=== PATIENT | male | born 1945 | race Caucasian/White ===

== ENCOUNTER → 2016-05-31 | Outpatient (CLI) | payer MEDICARE, OTHER ==
[2016-05-31 10:48] LABS: ABSOLUTE EOSINOPHILS # (AUTO) 0.2 10^3/uL (0.0-0.6); ABSOLUTE LYMPHOCYTES (AUTO) 1.1 10^3/uL (0.5-4.7); ABSOLUTE MONOCYTES (AUTO) 0.2 10^3/uL (0.1-1.4); ABSOLUTE NEUT (AUTO) 2.3 10^3/uL (1.7-8.2); BASOPHILS % (AUTO) 0.6 % (0-2); EOSINOPHILS % (AUTO) 5.8 % (0-6); HEMATOCRIT 41.7 % (37.9-51.0); HGB HCT DIFFERENCE 3.3; LYMPHOCYTES % (AUTO) 28.1 % (13-45); MEAN CORPUSCULAR HEMOGLOBIN 33.8 pg (27.0-33.4); MEAN CORPUSCULAR HGB CONC 35.9 g/dL (32.0-36.0); MEAN CORPUSCULAR VOLUME 94 fl (80-97); MONOCYTES % (AUTO) 5.2 % (3-13); RED BLOOD COUNT 4.44 10^6/uL (4.35-5.55); RED CELL DISTRIBUTION WIDTH 13.8 % (11.5-14.0); SEGMENTED NEUTROPHILS % (AUTO) 60.3 % (42-78); WHITE BLOOD COUNT 3.8 10^3/uL (4.0-10.5)
[2016-05-31 11:05] LABS: ALANINE AMINOTRANSFERASE 47 U/L (21-72); ALBUMIN 4.4 g/dL (3.5-5.0); ALKALINE PHOSPHATASE 110 U/L (38-126); ANION GAP 12 (5-19); ASPARTATE AMINO TRANSFERASE 24 U/L (17-59); BILIRUBIN,DIRECT 0.1 mg/dL (0.0-0.4); BILIRUBIN,TOTAL 0.7 mg/dL (0.2-1.3); BLOOD UREA NITROGEN 23 mg/dL (7-20); CALCIUM 9.3 mg/dL (8.4-10.2); CARBON DIOXIDE 26 mmol/L (22-30); CHLORIDE 106 mmol/L (98-107); CHOLESTEROL 163.95 mg/dL (0-200); CREATININE RESULT 0.81 mg/dL (0.52-1.25); Direct HDL 34 mg/dL (>40); GLUCOSE 113 mg/dL (75-110); SODIUM 144.3 mmol/L (137-145); TOTAL PROTEIN 6.2 g/dL (6.3-8.2); TRIGLYCERIDES 111 mg/dL (<150)
[2016-05-31 11:15] LABS: DIRECT LDL 103 mg/dL (<100)
== END ==
LOC: OD 09:12
PROVIDERS: ATTEND Internal Medicine
DX: I10 Essential (primary) hypertension (principal); E78.5 Hyperlipidemia, unspecified; E03.9 Hypothyroidism, unspecified; R35.1 Nocturia; C91.00 Acute lymphoblastic leukemia not having achieved remission
CPT/HCPCS: 36415; 80053; 80061; 84153; 84443; 85025

== ENCOUNTER → 2017-05-15 | Outpatient (CLI) | payer MEDICARE, OTHER ==
[2017-05-15 11:13] LABS: HEMATOCRIT 41.8 % (37.9-51.0); HEMOGLOBIN 15.1 g/dL (13.5-17.0); MEAN CORPUSCULAR HEMOGLOBIN 33.9 pg (27.0-33.4); MEAN CORPUSCULAR HGB CONC 36.1 g/dL (32.0-36.0); MEAN CORPUSCULAR VOLUME 94 fl (80-97); RED BLOOD COUNT 4.45 10^6/uL (4.35-5.55); RED CELL DISTRIBUTION WIDTH 13.9 % (11.5-14.0); WHITE BLOOD COUNT 2.5 10^3/uL (4.0-10.5)
[2017-05-15 11:22] LABS: ALANINE AMINOTRANSFERASE 34 U/L (21-72); ALBUMIN 4.5 g/dL (3.5-5.0); ALKALINE PHOSPHATASE 95 U/L (38-126); ANION GAP 12 (5-19); ASPARTATE AMINO TRANSFERASE 23 U/L (17-59); BILIRUBIN,DIRECT 0.1 mg/dL (0.0-0.4); BLOOD UREA NITROGEN 17 mg/dL (7-20); CALCIUM 9.4 mg/dL (8.4-10.2); CARBON DIOXIDE 26 mmol/L (22-30); CHLORIDE 103 mmol/L (98-107); CHOLESTEROL 149.02 mg/dL (0-200); GLUCOSE 124 mg/dL (75-110); POTASSIUM 4.3 mmol/L (3.6-5.0); SODIUM 141.1 mmol/L (137-145); TRIGLYCERIDES 95 mg/dL (<150)
[2017-05-15 11:36] LABS: DIRECT LDL 104 mg/dL (<100); PLATELET COUNT 81 10^3/uL (150-450)
[2017-05-15 11:37] LABS: ABSOLUTE LYMPHOCYTES# (MANUAL) 0.9 10^3/uL (0.5-4.7); ABSOLUTE MONOCYTES # (MANUAL) 0.4 10^3/uL (0.1-1.4); ABSOLUTE NEUTROPHILS# (MANUAL) 1.2 10^3/uL (1.7-8.2); BASOPHILS % (MANUAL) 0 % (0-2); EOSINOPHILS % (MANUAL) 3 % (0-6); LYMPHOCYTES % (MANUAL) 35 % (13-45); MONOCYTES % (MANUAL) 14 % (3-13); PLATELET COMMENT DECREASED; RBC MORPHOLOGY COMMENT NORMO-CYTIC/CHROMIC; SEGMENTED NEUTROPHILS % (MAN) 48 % (42-78); TOTAL CELLS COUNTED 100; TOXIC GRANULATION 1+; TOXIC VACUOLATION PRESENT
== END ==
LOC: OD 09:48
PROVIDERS: ATTEND Internal Medicine
DX: E53.8 Deficiency of other specified B group vitamins (principal); R73.9 Hyperglycemia, unspecified; D64.9 Anemia, unspecified; G62.9 Polyneuropathy, unspecified; I10 Essential (primary) hypertension; E78.5 Hyperlipidemia, unspecified; E03.9 Hypothyroidism, unspecified; C91.10 Chronic lymphocytic leukemia of B-cell type not having achieved remission; R35.1 Nocturia
CPT/HCPCS: 36415; 80053; 80061; 82607; 83036; 84153; 84443; 85025; 86255

== ENCOUNTER → 2017-08-22 | Outpatient (CLI) | payer MEDICARE, OTHER ==
[2017-08-22 12:36] LABS: ABSOLUTE EOSINOPHILS # (AUTO) 0.2 10^3/uL (0.0-0.6); ABSOLUTE LYMPHOCYTES (AUTO) 0.9 10^3/uL (0.5-4.7); ABSOLUTE MONOCYTES (AUTO) 0.1 10^3/uL (0.1-1.4); ABSOLUTE NEUT (AUTO) 1.6 10^3/uL (1.7-8.2); BASOPHILS % (AUTO) 0.4 % (0-2); EOSINOPHILS % (AUTO) 5.8 % (0-6); HEMATOCRIT 40.7 % (37.9-51.0); HEMOGLOBIN 14.5 g/dL (13.5-17.0); LYMPHOCYTES % (AUTO) 32.7 % (13-45); MEAN CORPUSCULAR HEMOGLOBIN 33.9 pg (27.0-33.4); MEAN CORPUSCULAR HGB CONC 35.7 g/dL (32.0-36.0); MEAN CORPUSCULAR VOLUME 95 fl (80-97); MONOCYTES % (AUTO) 4.2 % (3-13); RED BLOOD COUNT 4.28 10^6/uL (4.35-5.55); RED CELL DISTRIBUTION WIDTH 14.1 % (11.5-14.0); SEGMENTED NEUTROPHILS % (AUTO) 56.9 % (42-78); TOTAL CELLS COUNTED % (AUTO) 100 %; WHITE BLOOD COUNT 2.8 10^3/uL (4.0-10.5)
[2017-08-22 12:51] LABS: ALANINE AMINOTRANSFERASE 37 U/L (21-72); ALBUMIN 4.2 g/dL (3.5-5.0); ALKALINE PHOSPHATASE 121 U/L (38-126); ANION GAP 12 (5-19); ASPARTATE AMINO TRANSFERASE 21 U/L (17-59); BILIRUBIN,DIRECT 0.2 mg/dL (0.0-0.4); BILIRUBIN,TOTAL 0.8 mg/dL (0.2-1.3); BLOOD UREA NITROGEN 20 mg/dL (7-20); CALCIUM 9.1 mg/dL (8.4-10.2); CARBON DIOXIDE 25 mmol/L (22-30); CHLORIDE 103 mmol/L (98-107); GLUCOSE 298 mg/dL (75-110); POTASSIUM 4.5 mmol/L (3.6-5.0); SODIUM 139.5 mmol/L (137-145); TOTAL PROTEIN 6.3 g/dL (6.3-8.2)
[2017-08-22 13:02] LABS: PLATELET COUNT 89 10^3/uL (150-450)
[2017-08-22 13:55] LABS: FOLATE 8.73 ng/mL (>2.76)
== END ==
LOC: OD 11:16
PROVIDERS: ATTEND Internal Medicine
DX: I10 Essential (primary) hypertension (principal); R53.83 Other fatigue; C91.10 Chronic lymphocytic leukemia of B-cell type not having achieved remission; E78.5 Hyperlipidemia, unspecified; E53.8 Deficiency of other specified B group vitamins
CPT/HCPCS: 36415; 80053; 82607; 82746; 84403; 84443; 85025

== ENCOUNTER 2017-09-14 18:24 | Emergency (ER) | payer MEDICARE, OTHER ==
[2017-09-14] MEDS ORDERED: NORMAL SALINE 1000 ML 1,000 ML IV ONE ×2 (18:52→20:27)
--- NOTE | 2017-09-14 18:54 | ER Document Report ---
ED Medical Screen (RME) - General Chief Complaint: High Blood Sugar Stated Complaint: BLOOD SUGAR PROBLEM Time Seen by Provider: 09/14/17 18:43 Notes: RAPID MEDICAL EVALUATION DISCLOSURE I have seen this patient as part of a Rapid Medical Evaluation and, if applicable, placed any initially appropriate orders. The patient will be seen and fully evaluated, including a full history and physical exam, by a provider ( in Main ED or Fast Track) when a room becomes available. 72-year-old male here with complaints of increased thirst and urination, as well as fatigue over the past few days. This past Sunday, he received immunoglobulin infusion (prior CLL patient) as well as steroids and since then he has had these symptoms. He has no prior history of diabetes. Today, they have purchased a blood glucose meter and checked his blood sugar. It was elevated and found to be 449. They tried calling his doctor however did not receive a phone call back from him so they decided to come in to be seen. TRAVEL OUTSIDE OF THE [place] IN LAST 30 DAYS: No - Related Data Allergies/Adverse Reactions: JUDSON Inhibitors [Judson Inhibitors] Allergy (Verified 09/14/17 18:44) 1st degree AV block enalapril Allergy (Verified 09/14/17 18:48) coughing, wheezing, difficulty breathing metoprolol [From Lopressor] Allergy (Verified 09/14/17 18:48) airway closure morphine Allergy (Verified 09/14/17 18:48) cramping nitroglycerin Allergy (Verified 09/14/17 18:48) headache prazosin [From Minipress] Allergy (Verified 09/14/17 18:48) hyponaturemia propranolol [From Inderal LA] Allergy (Verified 09/14/17 18:48) airway closure valsartan Allergy (Verified 09/14/17 18:48) Hives beta blockers Allergy (Uncoded 09/14/17 18:48) airway closure diuretics Allergy (Uncoded 09/14/17 18:48) hives, swelling, hyponaturemia, hypokalemia Past Medical History - Past Medical History Cardiac Medical History: Reports: Hx Hypertension Pulmonary Medical History: Reports: Hx Pneumonia Denies: Hx Tuberculosis Neurological Medical History: Reports: Hx Migraine. Denies: Hx Seizures Endocrine Medical History: Reports: Hx Hypothyroidism. Denies: Hx Hyperthyroidism Malignancy Medical History: Reports Hx Leukemia, Reports Hx Lymphoma GI Medical History: Reports: Hx Gastroesophageal Reflux Disease Past Surgical History: Reports: Hx Appendectomy, Hx Cholecystectomy, Hx Vascular Surgery. Denies: Hx Pacemaker - Immunizations Hx Diphtheria, Pertussis, Tetanus Vaccination: Yes Physical Exam - Vital signs Vitals: Temp Pulse Resp BP Pulse Ox 97.5 F 93 16 106/81 95 09/14/17 18:33 09/14/17 18:33 09/14/17 18:33 09/14/17 18:33 09/14/17 18:33 Course - Vital Signs Vital signs: Temp Pulse Resp BP Pulse Ox 97.5 F 93 16 106/81 95 09/14/17 18:33 09/14/17 18:33 09/14/17 18:33 09/14/17 18:33 09/14/17 18:33 Doctor's Discharge - Discharge Referrals: TAMI CHAMPAGNE MD [Primary Care Provider] - Follow up as needed
[2017-09-14 19:26] LABS: VENOUS BLOOD BASE EXCESS -2.3 mmol/L; VENOUS BLOOD HCO3 22.8 mmol/L (20-32); VENOUS BLOOD PCO2 40.6 mmHg (35-63); VENOUS BLOOD PH 7.37 (7.30-7.42)
[2017-09-14 19:32] LABS: ABSOLUTE EOSINOPHILS # (AUTO) 0.1 10^3/uL (0.0-0.6); ABSOLUTE LYMPHOCYTES (AUTO) 1.2 10^3/uL (0.5-4.7); ABSOLUTE MONOCYTES (AUTO) 0.1 10^3/uL (0.1-1.4); ABSOLUTE NEUT (AUTO) 1.5 10^3/uL (1.7-8.2); BASOPHILS % (AUTO) 0.3 % (0-2); EOSINOPHILS % (AUTO) 2.1 % (0-6); LYMPHOCYTES % (AUTO) 41.6 % (13-45); MEAN CORPUSCULAR HEMOGLOBIN 33.9 pg (27.0-33.4); MEAN CORPUSCULAR HGB CONC 35.6 g/dL (32.0-36.0); MEAN CORPUSCULAR VOLUME 95 fl (80-97); MONOCYTES % (AUTO) 4.4 % (3-13); RED BLOOD COUNT 4.72 10^6/uL (4.35-5.55); RED CELL DISTRIBUTION WIDTH 13.8 % (11.5-14.0); SEGMENTED NEUTROPHILS % (AUTO) 51.6 % (42-78); TOTAL CELLS COUNTED % (AUTO) 100 %; WHITE BLOOD COUNT 2.9 10^3/uL (4.0-10.5)
[2017-09-14 19:46] LABS: ALANINE AMINOTRANSFERASE 33 U/L (21-72); ALBUMIN 4.4 g/dL (3.5-5.0); ALKALINE PHOSPHATASE 163 U/L (38-126); ANION GAP 16 (5-19); ASPARTATE AMINO TRANSFERASE 22 U/L (17-59); BILIRUBIN,DIRECT 0.4 mg/dL (0.0-0.4); BILIRUBIN,TOTAL 0.7 mg/dL (0.2-1.3); BLOOD UREA NITROGEN 24 mg/dL (7-20); CALCIUM 9.2 mg/dL (8.4-10.2); CARBON DIOXIDE 22 mmol/L (22-30); CHLORIDE 99 mmol/L (98-107); PHOSPHORUS 3.8 mg/dL (2.5-4.5); POTASSIUM 4.5 mmol/L (3.6-5.0); SODIUM 136.8 mmol/L (137-145); TOTAL PROTEIN 6.8 g/dL (6.3-8.2)
[2017-09-14 19:52] LABS: GLUCOSE 432 mg/dL (75-110)
[2017-09-14 19:59] LABS: PLATELET COUNT 89 10^3/uL (150-450)
[2017-09-14 20:11] LABS: APPEARANCE,URINE CLEAR; BILIRUBIN,URINE NEGATIVE (NEGATIVE); COLOR,URINE YELLOW; GLUCOSE, URINE >=500 mg/dL (NEGATIVE); KETONES,URINE 20 mg/dL (NEGATIVE); LEUKOCYTE ESTERASE,URINE NEGATIVE (NEGATIVE); NITRITE,URINE NEGATIVE (NEGATIVE); PROTEIN,URINE NEGATIVE (NEGATIVE); URINE SPECIFIC GRAVITY 1.031; UROBILINOGEN,URINE NEGATIVE mg/dL (<2.0)
--- NOTE | 2017-09-14 20:16 | ER Document Report ---
ED Blood Sugar Problem - General Chief Complaint: High Blood Sugar Stated Complaint: BLOOD SUGAR PROBLEM Time Seen by Provider: 09/14/17 18:43 Mode of Arrival: Ambulatory Information source: Patient Notes: Patient is a 72-year-old male who presents with chief complaint of increased thirst, increased urination and fatigue. Patient denies having any history of diabetes. Patient reports that he bought a home glucose meter today and had a glucose reading of 449. Patient also reports that he bought a urine dipsticks had positive ketones in his urine. 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 Patient reports that he gets this treatment every 90 days. Patient reports that at some point over the last couple years somebody did mention that he may be pre-diabetic however he has not had any formal diagnosis. Patient denies any other symptoms to include abdominal pain, nausea, vomiting, diarrhea or fevers. TRAVEL OUTSIDE OF THE [place] IN LAST 30 DAYS: No - Related Data Allergies/Adverse Reactions: JUDSON Inhibitors [Judson Inhibitors] Allergy (Verified 09/14/17 18:44) 1st degree AV block enalapril Allergy (Verified 09/14/17 18:48) coughing, wheezing, difficulty breathing metoprolol [From Lopressor] Allergy (Verified 09/14/17 18:48) airway closure morphine Allergy (Verified 09/14/17 18:48) cramping nitroglycerin Allergy (Verified 09/14/17 18:48) headache prazosin [From Minipress] Allergy (Verified 09/14/17 18:48) hyponaturemia propranolol [From Inderal LA] Allergy (Verified 09/14/17 18:48) airway closure valsartan Allergy (Verified 09/14/17 18:48) Hives beta blockers Allergy (Uncoded 09/14/17 18:48) airway closure diuretics Allergy (Uncoded 09/14/17 18:48) hives, swelling, hyponaturemia, hypokalemia Past Medical History - General Information source: Patient - Social History Smoking Status: Never Smoker Chew tobacco use (# tins/day): No Frequency of alcohol use: None Drug Abuse: None Family History: Reviewed & Not Pertinent Patient has suicidal ideation: No Patient has homicidal ideation: No - Past Medical History Cardiac Medical History: Reports: Hx Hypertension Pulmonary Medical History: Reports: Hx Pneumonia Denies: Hx Tuberculosis Neurological Medical History: Reports: Hx Migraine. Denies: Hx Seizures Endocrine Medical History: Reports: Hx Hypothyroidism. Denies: Hx Hyperthyroidism Renal/ Medical History: Denies: Hx Peritoneal Dialysis Malignancy Medical History: Reports Hx Leukemia, Reports Hx Lymphoma GI Medical History: Reports: Hx Gastroesophageal Reflux Disease Past Surgical History: Reports: Hx Appendectomy, Hx Cholecystectomy, Hx Vascular Surgery. Denies: Hx Pacemaker - Immunizations Hx Diphtheria, Pertussis, Tetanus Vaccination: Yes Hx Pneumococcal Vaccination: 12/10/05 Review of Systems - Review of Systems Constitutional: Malaise, Other - Excessive thirst EENT: No symptoms reported Cardiovascular: No symptoms reported Respiratory: No symptoms reported Gastrointestinal: No symptoms reported Genitourinary: Frequency Male Genitourinary: No symptoms reported Musculoskeletal: No symptoms reported Skin: No symptoms reported Hematologic/Lymphatic: No symptoms reported Neurological/Psychological: No symptoms reported Physical Exam - Vital signs Vitals: Temp Pulse Resp BP Pulse Ox 97.5 F 93 16 106/81 95 09/14/17 18:33 09/14/17 18:33 09/14/17 18:33 09/14/17 18:33 09/14/17 18:33 - Notes Notes: PHYSICAL EXAMINATION: GENERAL: Well-appearing, well-nourished and in no acute distress. HEAD: Atraumatic, normocephalic. EYES: Pupils equal round and reactive to light, extraocular movements intact, sclera anicteric, conjunctiva are normal. ENT: Nares patent, oropharynx clear without exudates. Moist mucous membranes. NECK: Normal range of motion, supple without lymphadenopathy LUNGS: Breath sounds clear to auscultation bilaterally and equal. No wheezes rales or rhonchi. HEART: Regular rate and rhythm without murmurs ABDOMEN: Soft, nontender, nondistended abdomen. No guarding, no rebound. No masses appreciated. Musculoskeletal: Normal range of motion, no pitting or edema. No cyanosis. NEUROLOGICAL: Cranial nerves grossly intact. Normal speech, normal gait. Normal sensory, motor exams PSYCH: Normal mood, normal affect. SKIN: Warm, Dry, normal turgor, no rashes or lesions noted. Course - Re-evaluation Re-evalutation: 72-year-old male patient presenting with chief complaint of increased thirst, increased urination and fatigue over the last few weeks. Patient reports that he has a history of CLL which has been in remission for 7 years however every 90 days he gets immunoglobulin injections with steroids, he received his last dose on . Patient reports glucose at home of 449 and denies any history of diabetes. Today's lab results reveal a white blood count of 2.9 which is normal for this patient, otherwise normal CBC. VBG was normal with a pH of 7.37. Conference of metabolic panel reveals a glucose of 432, normal anion gap, normal CO2. A1c was checked and is 10.8 in comparison with 6.0 drawn in May 2017. Urinalysis reveals glucose and ketones. Patient is completely asymptomatic, physical assessment is within normal limits. Call placed to Dr. Champagne, primary care provider for this patient. Dr. Champagne called back and reconfirms that patient has an appointment in his office Sunday morning at 9 AM. He would like patient to increase his water intake over the weekend, avoid starches and carbohydrates. Dr. Champagne does not want me to start patient on any type of medications at this time. This was discussed with patient who is in agreement with the plan, patient will be discharged home in stable condition. - Vital Signs Vital signs: Temp Pulse Resp BP Pulse Ox 97.5 F 93 16 106/81 95 09/14/17 18:33 09/14/17 18:33 09/14/17 18:33 09/14/17 18:33 09/14/17 18:33 - Laboratory Result Diagrams: 09/14/17 19:00 09/14/17 19:00 Laboratory results interpreted by me: 09/14/17 09/14/17 09/14/17 19:00 19:00 19:00 WBC 2.9 L MCH 33.9 H Plt Count 89 L Absolute Neutrophils 1.5 L Sodium 136.8 L BUN 24 H Glucose 432 H* Hemoglobin A1c % 10.8 H Alkaline Phosphatase 163 H Urine Glucose (UA) Urine Ketones 09/14/17 19:10 WBC MCH Plt Count Absolute Neutrophils Sodium BUN Glucose Hemoglobin A1c % Alkaline Phosphatase Urine Glucose (UA) >=500 H Urine Ketones 20 H Discharge - Discharge Clinical Impression: Hyperglycemia Condition: Stable Disposition: HOME, SELF-CARE Additional Instructions: Hyperglycemia (High Blood Sugar) You have an abnormally high blood sugar. Not all high blood sugar requires long-term treatment. High blood sugar can be due to medications or the stress of illness. (These cases are "borderline diabetes.") If the doctor feels your high blood sugar might resolve with time, you may not require treatment now. You will be scheduled for further evaluation. It's very important that you follow through, to see if the blood sugar returns to normal levels. Uncontrolled high blood sugar leads to early heart disease, strokes, nerve damage, eye damage, and kidney damage. Call the physician if there is faintness, excess sleepiness, or very rapid breathing. Called and spoke with Dr. Champagne who wants you to follow up in his office this Sunday as planned previously. Referrals: TAMI CHAMPAGNE MD [Primary Care Provider] - Follow up as needed
[2017-09-14 21:11] VITALS: BP 132/92
== END 2017-09-14 21:11 | disposition home or self-care (01) ==
LOC: ER 18:24
DX: R73.9 Hyperglycemia, unspecified (principal); R63.1 Polydipsia; R35.0 Frequency of micturition; R53.83 Other fatigue; R53.81 Other malaise; C91.11 Chronic lymphocytic leukemia of B-cell type in remission; I10 Essential (primary) hypertension; Z79.52 Long term (current) use of systemic steroids; Z98.890 Other specified postprocedural states; Z88.8 Allergy status to other drugs, medicaments and biological substances; Z88.5 Allergy status to narcotic agent
CPT/HCPCS: 99285; 96360; 96361; 36415; 82962; 83735; 84100; 85025; 80053; 81001; 83036; 82803; J7030

== ENCOUNTER → 2017-09-18 | Outpatient (CLI) | payer MEDICARE, OTHER ==
[2017-09-18 09:59] LABS: ABSOLUTE EOSINOPHILS # (AUTO) 0.1 10^3/uL (0.0-0.6); ABSOLUTE LYMPHOCYTES (AUTO) 0.9 10^3/uL (0.5-4.7); ABSOLUTE MONOCYTES (AUTO) 0.1 10^3/uL (0.1-1.4); ABSOLUTE NEUT (AUTO) 1.3 10^3/uL (1.7-8.2); BASOPHILS % (AUTO) 0.5 % (0-2); EOSINOPHILS % (AUTO) 3.1 % (0-6); HEMATOCRIT 42.1 % (37.9-51.0); HEMOGLOBIN 15.3 g/dL (13.5-17.0); LYMPHOCYTES % (AUTO) 37.5 % (13-45); MEAN CORPUSCULAR HEMOGLOBIN 34.2 pg (27.0-33.4); MEAN CORPUSCULAR HGB CONC 36.4 g/dL (32.0-36.0); MEAN CORPUSCULAR VOLUME 94 fl (80-97); MONOCYTES % (AUTO) 4.8 % (3-13); RED BLOOD COUNT 4.48 10^6/uL (4.35-5.55); RED CELL DISTRIBUTION WIDTH 13.9 % (11.5-14.0); SEGMENTED NEUTROPHILS % (AUTO) 54.1 % (42-78); TOTAL CELLS COUNTED % (AUTO) 100 %; WHITE BLOOD COUNT 2.4 10^3/uL (4.0-10.5)
[2017-09-18 10:31] LABS: PLATELET COUNT 83 10^3/uL (150-450)
[2017-09-18 10:35] LABS: ALANINE AMINOTRANSFERASE 34 U/L (21-72); ALBUMIN 4.1 g/dL (3.5-5.0); ALKALINE PHOSPHATASE 111 U/L (38-126); ANION GAP 11 (5-19); ASPARTATE AMINO TRANSFERASE 26 U/L (17-59); BILIRUBIN,DIRECT 0.4 mg/dL (0.0-0.4); BILIRUBIN,TOTAL 0.9 mg/dL (0.2-1.3); BLOOD UREA NITROGEN 18 mg/dL (7-20); CARBON DIOXIDE 25 mmol/L (22-30); CHLORIDE 103 mmol/L (98-107); GLUCOSE 283 mg/dL (75-110); POTASSIUM 4.4 mmol/L (3.6-5.0); SODIUM 139.4 mmol/L (137-145); TOTAL PROTEIN 6.4 g/dL (6.3-8.2)
[2017-09-18 11:12] LABS: C PEPTIDE 1.84 ng/mL (0.727-3.680)
== END ==
LOC: OD 09:15
PROVIDERS: ATTEND Internal Medicine
DX: R73.9 Hyperglycemia, unspecified (principal); I10 Essential (primary) hypertension
CPT/HCPCS: 36415; 80053; 83036; 83525; 84681; 85025

== ENCOUNTER 2017-11-29 11:04 | Inpatient (IN) | payer MEDICARE, OTHER ==
[2017-11-29] MEDS ORDERED: ASPIRIN 81 MG TABLET, CHEWABLE PO ONE ×2 (11:25→12:26)
[2017-11-29 11:49] LABS: ABSOLUTE LYMPHOCYTES (AUTO) 0.7 10^3/uL (0.5-4.7); ABSOLUTE MONOCYTES (AUTO) 0.2 10^3/uL (0.1-1.4); ABSOLUTE NEUT (AUTO) 2.2 10^3/uL (1.7-8.2); BASOPHILS % (AUTO) 0.3 % (0-2); HEMOGLOBIN 15.7 g/dL (13.5-17.0); LYMPHOCYTES % (AUTO) 22.3 % (13-45); MEAN CORPUSCULAR HEMOGLOBIN 34.5 pg (27.0-33.4); MEAN CORPUSCULAR HGB CONC 35.7 g/dL (32.0-36.0); MEAN CORPUSCULAR VOLUME 97 fl (80-97); MONOCYTES % (AUTO) 5.9 % (3-13); RED BLOOD COUNT 4.55 10^6/uL (4.35-5.55); SEGMENTED NEUTROPHILS % (AUTO) 70.5 % (42-78); TOTAL CELLS COUNTED % (AUTO) 100 %; WHITE BLOOD COUNT 3.1 10^3/uL (4.0-10.5)
[2017-11-29 12:10] LABS: ALANINE AMINOTRANSFERASE 32 U/L (21-72); ALBUMIN 4.8 g/dL (3.5-5.0); ALKALINE PHOSPHATASE 114 U/L (38-126); ANION GAP 10 (5-19); ASPARTATE AMINO TRANSFERASE 31 U/L (17-59); BILIRUBIN,DIRECT 0.7 mg/dL (0.0-0.4); BLOOD UREA NITROGEN 14 mg/dL (7-20); CALCIUM 9.8 mg/dL (8.4-10.2); CARBON DIOXIDE 25 mmol/L (22-30); CHLORIDE 103 mmol/L (98-107); CREATINE KINASE 32 U/L (55-170); GLUCOSE 125 mg/dL (75-110); POTASSIUM 3.8 mmol/L (3.6-5.0); SODIUM 137.7 mmol/L (137-145); TOTAL PROTEIN 7.9 g/dL (6.3-8.2)
[2017-11-29 12:14] LABS: PLATELET COUNT 84 10^3/uL (150-450)
--- NOTE | 2017-11-29 12:26 | RADIOLOGY REPORT (SQ) ---
EXAM DESCRIPTION: CHEST SINGLE VIEW COMPLETED DATE/TIME: 11/29/2017 11:50 am REASON FOR STUDY: cp COMPARISON: Chest films 12/22/2012, 08/26/2013 CT chest 09/04/2013 EXAM PARAMETERS: NUMBER OF VIEWS: One view. TECHNIQUE: Single frontal radiographic view of the chest acquired. RADIATION DOSE: NA LIMITATIONS: None. FINDINGS: LUNGS AND PLEURA: Minimal bandlike scarring or atelectasis at the left lung base. No acute infiltrates, pleural effusion or pneumothorax. MEDIASTINUM AND HILAR STRUCTURES: No masses. Contour normal. HEART AND VASCULAR STRUCTURES: Stable mild cardiomegaly BONES: No acute findings. HARDWARE: None in the chest. OTHER: No other significant finding. IMPRESSION: NO ACUTE RADIOGRAPHIC FINDING IN THE CHEST. TECHNICAL DOCUMENTATION: JOB ID: [id number] [employer]- All Rights Reserved Reading location - IP/workstation name: [email or web address]
[2017-11-29 12:28] LABS: CREATINE KINASE MB 1.75 ng/mL (<4.55)
[2017-11-29 12:29] LABS: TROPONIN I < 0.012 ng/mL
[2017-11-29] MEDS ORDERED: FENTANYL CITRATE INJ/PF 100 MCG/2 ML AMPUL IV ONE ×3 (12:31→15:32)
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
--- NOTE | 2017-11-29 13:36 | RADIOLOGY REPORT (SQ) ---
EXAM DESCRIPTION: CTA CHEST COMPLETED DATE/TIME: 11/29/2017 1:21 pm REASON FOR STUDY: thoracic back, anter cp COMPARISON: CT chest 09/04/2013, 04/08/2009, 01/04/2009 TECHNIQUE: CT scan of the chest performed using helical scanning technique with dynamic intravenous contrast injection. Images reviewed with lung, soft tissue and bone windows. Reconstructed coronal and sagittal MPR images reviewed. Additional 3 dimensional post-processing performed to develop Maximal Intensity Projection images (MN P). All images stored on PACS. All CT scanners at this facility use dose modulation, iterative reconstruction, and/or weight based d osing when appropriate to reduce radiation dose to as low as reasonably achievable (ALARA). [facility]: Dose Right [facility]: CareDose [facility]: Dose Right [facility]: Teradose 4D [facility]: [employer] CONTRAST TYPE AND DOSE: contrast/concentration: Isovue 350.00 mg/ml; Total Contrast Delivered: 81.0 ml; Total Saline Delivered: 84.0 ml Contrast bolus optimized for the pulmonary arteries and aorta. RENAL FUNCTION: Creatinine 0.6 RADIATION DOSE: CT Rad equipment meets quality standard of care and radiation dose reduction techniq ues were employed. CTDIvol: 19.8 - 26.0 mGy. DLP: 1022 mGy-cm. . LIMITATIONS: None. FINDINGS: LUNGS AND PLEURA: Minimal bibasilar atelectasis. No fluffy alveolar infiltrates worrisome for edema or pneumonia. No pleural effusions. No pneumothorax. AORTA AND GREAT VESSELS: Ascending thoracic aorta 4.5 cm in greatest diameter. No thoracic aortic di ssection HEART: Heavily calcified aortic valve, left ventricular myocardial thickening. These findings along with ascending thoracic aorta 4.5 cm in diameter strongly suggests aortic stenosis. Cardiac echo cor relation recommended. No pericardial effusion. Mild significant coronary artery calcifications. PULMONARY ARTERIES: No emboli visualized in the main pulmonary arteries or the segmental branches. HILAR AND MEDIASTINAL STRUCTURES: No identified masses or abnormal nodes. HARDWARE: None in the chest. UPPER ABDOMEN: Post cholecystectomy. 5 cm cyst right upper pole kidney. Hiatal hernia THYROID AND OTHER SOFT TISSUES: No masses. No adenopathy. BONES: No acute or significant finding. 3D MIPS: Confirm above findings. OTHER: No other significant finding. IMPRESSION: No CT angio evidence of acute pulmonary emboli or thoracic aortic dissection Heavily calcified aortic valve, left ventricular myocardial thickening, dilated ascending aortic arch . Findings are worrisome for aortic stenosis, cardiac echo recommended COMMENT: Quality ID # [id number]: Final reports with documentation of one or more dose reduction techniques (e.g., Automated exposure control, adjustment of the mA and/or kV according to patient size, use of iterative reconstruction technique) TECHNICAL DOCUMENTATION: JOB ID: [id number] [employer]- All Rights Reserved Reading location - IP/workstation name: [email or web address]
--- NOTE | 2017-11-29 13:44 | EKG REPORT ---
SEVERITY:- ABNORMAL ECG - ECTOPIC ATRIAL RHYTHM INCOMPLETE RIGHT BUNDLE BRANCH BLOCK BORDERLINE PROLONGED QT INTERVAL : Confirmed by: Isamar Ma MD 29-Nov-2017 13:44:12
[2017-11-29] MEDS ORDERED: LIDOCAINE 5% (700 MG) TRANSDERMAL ADH..PATCH TP ONE (17:47)
[2017-11-29] MEDS ORDERED: AMLODIPINE BESYLATE 5 MG TABLET PO ONE (18:00)
[2017-11-29] MEDS ORDERED: MINOXIDIL 10 MG TABLET PO ONE (18:00)
--- NOTE | 2017-11-29 18:15 | XCELERA REPORT ---
[address] [address] Transthoracic Echocardiogram Report Name: DENI RODRÍGUEZ Age: 72 yrs Gender: Male : 1945 Patient Status: Emergency Patient Location: ER Study Date: 11/29/2017 02:50 PM Height: 81 in Weight: 227 lb BSA: 2.4 m2 Procedure: A complete two-dimensional transthoracic echocardiogram was performed (2D, M-mode, spectral and color flow Doppler). The study was technically difficult with many images being suboptimal in quality. Reason For Study: ?aortic stenosis, cp Ordering Physician: SANDRA CHIANG Performed By: Scott Sorenson Interpretation Summary The left ventricular ejection fraction is preserved. Consider additional methods to assess LVEF such as MUGA scan, CTA heart, cardiac MRI, MINE, etc. if clinically indicated. The left ventricle is grossly normal size. There is mild concentric left ventricular hypertrophy. Regional wall motion abnormalities cannot be excluded due to limited visualization. The right ventricle is mildly dilated. Right ventricular function cannot be assessed due to poor image quality. The right atrium is mildly dilated. The left atrium is mildly dilated. There is no mitral valve stenosis. There is no mitral regurgitation noted. The aortic valve is mildly calcified There is no aortic valve stenosis There is a trace amount of aortic regurgitation The aortic valve is not well visualized secondary to technical limitations There is a trace or physiologic amount of tricuspid regurgitation Tricuspid regurgitation jet envelope not well defined to measure RV systolic pressure accurately. The inferior vena cava was not well visualized The aortic root is not well visualized. There is no pericardial effusion. The study was technically difficult with many images being suboptimal in quality. MMode/2D Measurements & Calculations RVDd: 4.1 cm LVIDd: 5.0 cm FS: 39.3 % Ao root diam: 3.7 cm IVSd: 0.90 cm LVIDs: 3.0 cm EDV(Teich): 118.9 ml Ao root area: 10.5 cm2 LVPWd: 1.0 cm ESV(Teich): 36.3 ml LA dimension: 3.8 cm EF(Teich): 69.5 % Doppler Measurements & Calculations MV E max denita: MV P1/2t max denita: Ao V2 max: LV V1 max P.1 cm/sec 77.2 cm/sec 171.6 cm/sec 3.6 mmHg MV A max denita: MV P1/2t: 37.4 msec Ao max PG: LV V1 max: 120.4 cm/sec MVA(P1/2t): 5.9 cm2 11.8 mmHg 95.3 cm/sec MV E/A: 0.59 MV dec slope: 605.3 cm/sec2 MV dec time: 0.12 sec PA V2 max: TR max denita: MV P1/2t-pr_phl: 98.7 cm/sec 245.8 cm/sec 37.4 msec PA max P.9 mmHg TR max P.2 mmHg Left Ventricle The left ventricle is grossly normal size. There is mild concentric left ventricular hypertrophy. The left ventricular ejection fraction is preserved. Consider additional methods to assess LVEF such as MUGA scan, CTA heart, cardiac MRI, MINE, etc. if clinically indicated. Doppler measurements suggest pseudonormalized left ventricular relaxation, which is associated with grade II/IV or mild to moderate diastolic dysfunction. Regional wall motion abnormalities cannot be excluded due to limited visualization. Right Ventricle The right ventricle is mildly dilated. Right ventricular function cannot be assessed due to poor image quality. Atria The right atrium is mildly dilated. The left atrium is mildly dilated. Interarterial septum not well visualized and not well dopplered. Cannot comment on ASD/PFO presence. Mitral Valve The mitral valve is grossly normal. There is no mitral valve stenosis. There is no mitral regurgitation noted. Aortic Valve The aortic valve is not well visualized secondary to technical limitations. The aortic valve is mildly calcified. There is no aortic valve stenosis. There is a trace amount of aortic regurgitation. Tricuspid Valve The tricuspid valve is not well visualized secondary to technical limitations. There is no tricuspid stenosis. There is a trace or physiologic amount of tricuspid regurgitation. Tricuspid regurgitation jet envelope not well defined to measure RV systolic pressure accurately. Pulmonic Valve The pulmonic valve is not well visualized. Great Vessels The aortic root is not well visualized. The inferior vena cava was not well visualized. Effusions There is no pericardial effusion. : SANDRA CHIANG > Anay Padilla
[2017-11-29] MEDS: OXYCODONE HCL IR 5 MG TABLET PO PRN (21:07)
[2017-11-29] MEDS: 1/2 NORMAL SALINE 1,000 ML IV PRN (23:25)
[2017-11-29] MEDS: HYDROMORPHONE HCL INJ/PF 2 MG/ML AMPULE IV PRN (23:34)
[2017-11-29] MEDS: GABAPENTIN 100 MG CAPSULE PO SCH (23:35)
[2017-11-29 23:44] LABS: CREATINE KINASE MB 1.19 ng/mL (<4.55)
[2017-11-29 23:45] LABS: TROPONIN I < 0.012 ng/mL
[2017-11-30] MEDS: OXYCODONE HCL IR 5 MG TABLET PO PRN (03:57)
[2017-11-30 05:51] LABS: ABSOLUTE LYMPHOCYTES (AUTO) 0.4 10^3/uL (0.5-4.7); ABSOLUTE MONOCYTES (AUTO) 0.1 10^3/uL (0.1-1.4); ABSOLUTE NEUT (AUTO) 1.8 10^3/uL (1.7-8.2); BASOPHILS % (AUTO) 0.2 % (0-2); EOSINOPHILS % (AUTO) 0.4 % (0-6); HEMATOCRIT 41.5 % (37.9-51.0); HEMOGLOBIN 14.6 g/dL (13.5-17.0); LYMPHOCYTES % (AUTO) 16.1 % (13-45); MEAN CORPUSCULAR HEMOGLOBIN 34.3 pg (27.0-33.4); MEAN CORPUSCULAR HGB CONC 35.3 g/dL (32.0-36.0); MEAN CORPUSCULAR VOLUME 97 fl (80-97); MONOCYTES % (AUTO) 5.3 % (3-13); RED BLOOD COUNT 4.27 10^6/uL (4.35-5.55); RED CELL DISTRIBUTION WIDTH 14.1 % (11.5-14.0); TOTAL CELLS COUNTED % (AUTO) 100 %; WHITE BLOOD COUNT 2.2 10^3/uL (4.0-10.5)
[2017-11-30] MEDS: HYDROMORPHONE HCL INJ/PF 2 MG/ML AMPULE IV PRN ×11 (06:10→23:58)
[2017-11-30] MEDS: GABAPENTIN 100 MG CAPSULE PO SCH ×3 (06:11→22:10)
[2017-11-30 06:20] LABS: PLATELET COUNT 69 10^3/uL (150-450)
[2017-11-30 06:23] LABS: ANION GAP 11 (5-19); BLOOD UREA NITROGEN 14 mg/dL (7-20); CALCIUM 8.8 mg/dL (8.4-10.2); CARBON DIOXIDE 22 mmol/L (22-30); CHLORIDE 100 mmol/L (98-107); GLUCOSE 129 mg/dL (75-110); POTASSIUM 3.8 mmol/L (3.6-5.0); SODIUM 133.3 mmol/L (137-145)
[2017-11-30 06:27] LABS: CREATINE KINASE < 20 U/L (55-170)
[2017-11-30 06:30] LABS: CREATINE KINASE MB 1.01 ng/mL (<4.55)
[2017-11-30 06:34] LABS: TROPONIN I < 0.012 ng/mL
[2017-11-30] MEDS ORDERED: PROMETHAZINE HCL INJ 25 MG/1 ML VIAL ONE (07:57)
[2017-11-30] MEDS ORDERED: ONDANSETRON HCL INJ/PF 4 MG/2 ML SDV IV PRN (08:45)
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
[2017-11-30] MEDS ORDERED: PROMETHAZINE HCL INJ 25 MG/1 ML VIAL IV ONE (09:30)
--- NOTE | 2017-11-30 10:24 | EKG REPORT ---
SEVERITY:- ABNORMAL ECG - SINUS RHYTHM FIRST DEGREE AV BLOCK PROBABLE LEFT ATRIAL ABNORMALITY INCOMPLETE RIGHT BUNDLE BRANCH BLOCK : Confirmed by: Isamar Ma MD 30-Nov-2017 10:23:26
[2017-11-30] MEDS: 1/2 NORMAL SALINE 1,000 ML IV PRN (10:47)
[2017-11-30 12:11] LABS: CREATINE KINASE MB 1.12 ng/mL (<4.55)
[2017-11-30 12:12] LABS: TROPONIN I < 0.012 ng/mL
[2017-11-30] MEDS ORDERED: MEDROL DOSEPAK (DAY 1 LUNCH & SUPPER) (EDIT AFTER 0800) PO SCH (13:00)
--- NOTE | 2017-11-30 14:00 | RADIOLOGY REPORT (SQ) ---
EXAM DESCRIPTION: MRI THORACIC SPINE WITHOUT COMPLETED DATE/TIME: 11/30/2017 1:11 pm REASON FOR STUDY: Acute compression fracture E08.9 DIABETES DUE TO UNDERLYING CONDITION W/O COMPLIC ATIONS COMPARISON: None. TECHNIQUE: Sagittal and Axial imaging includes T1, T2, STIR and gradient echo sequences. LIMITATIONS: None. FINDINGS: LOCALIZER: No worrisome findings. ALIGNMENT: Normal. VERTEBRAE: Intact. BONE MARROW: Normal. No marrow replacement or reactive changes. HARDWARE: None in the spine. CORD: Normal in size and signal intensity. SOFT TISSUES: No soft tissue masses. THORACIC DISCS T1-T12: No significant spinal stenosis or exit foraminal stenosis. Anterior osteophyt es in the lower thoracic spine appear LOWER CERVICAL: Incompletely imaged. No significant spinal stenosis or exit foraminal stenosis. UPPER LUMBAR: Incompletely imaged. No significant spinal stenosis or exit foraminal stenosis. OTHER: No other significant finding. IMPRESSION: NORMAL MRI THORACIC SPINE. NO ACUTE OR SIGNIFICANT FINDINGS. TECHNICAL DOCUMENTATION: JOB ID: [id number] [employer]- All Rights Reserved Reading location - IP/workstation name: [email or web address]
[2017-11-30] MEDS: HYDRALAZINE HCL 50 MG TABLET PO SCH ×3 (14:37→23:57)
[2017-11-30] MEDS ORDERED: DIAZEPAM INJ 10 MG/2 ML DISP.SYRIN IV SCH (16:45)
[2017-11-30] MEDS: LANSOPRAZOLE 30 MG TAB.RAP.DR PO SCH (18:31)
[2017-11-30] MEDS: PROMETHAZINE HCL INJ 25 MG/1 ML VIAL IV PRN (18:32)
[2017-11-30] MEDS ORDERED: METHYLPREDNISOLONE INJ 125 MG/2 ML SDV IV ONE (19:22)
[2017-11-30] MEDS ORDERED: METHYLPREDNISOLONE DOSEPAK (4 MG/TAB) 21 TAB/DSPK PO SCH (19:30)
[2017-11-30] MEDS ORDERED: MEDROL DOSEPAK (DAY 1 BEDTIME DOSE) (EDIT AFTER 0800) PO SCH (22:00)
[2017-11-30] MEDS ORDERED: METHYLPREDNISOLONE 4 MG TABLET PO ONE (22:00)
[2017-11-30] MEDS: CYCLOBENZAPRINE HCL 10 MG TABLET PO PRN (22:10)
[2017-12-01] MEDS: HYDRALAZINE HCL INJ/PF 20 MG/1 ML SDV IV PRN ×3 (04:44→20:12)
[2017-12-01] MEDS: HYDROMORPHONE HCL INJ/PF 2 MG/ML AMPULE IV PRN ×3 (04:50→20:11)
[2017-12-01] MEDS: GABAPENTIN 100 MG CAPSULE PO SCH ×3 (05:07→22:23)
[2017-12-01] MEDS: HYDRALAZINE HCL 50 MG TABLET PO SCH ×3 (05:07→17:02)
[2017-12-01] MEDS: LANSOPRAZOLE 30 MG TAB.RAP.DR PO SCH ×2 (05:08→16:54)
[2017-12-01 06:17] LABS: ALANINE AMINOTRANSFERASE 71 U/L (21-72); ALBUMIN 4.3 g/dL (3.5-5.0); ALKALINE PHOSPHATASE 118 U/L (38-126); ANION GAP 13 (5-19); ASPARTATE AMINO TRANSFERASE 50 U/L (17-59); BILIRUBIN,DIRECT 0.4 mg/dL (0.0-0.4); BLOOD UREA NITROGEN 14 mg/dL (7-20); CALCIUM 9.2 mg/dL (8.4-10.2); CARBON DIOXIDE 24 mmol/L (22-30); CHLORIDE 100 mmol/L (98-107); GLUCOSE 184 mg/dL (75-110); HEMATOCRIT 43.7 % (37.9-51.0); HEMOGLOBIN 15.8 g/dL (13.5-17.0); MEAN CORPUSCULAR HEMOGLOBIN 34.7 pg (27.0-33.4); MEAN CORPUSCULAR HGB CONC 36.1 g/dL (32.0-36.0); MEAN CORPUSCULAR VOLUME 96 fl (80-97); RED BLOOD COUNT 4.54 10^6/uL (4.35-5.55); RED CELL DISTRIBUTION WIDTH 13.9 % (11.5-14.0); SODIUM 136.7 mmol/L (137-145); TOTAL PROTEIN 6.6 g/dL (6.3-8.2); WHITE BLOOD COUNT 1.6 10^3/uL (4.0-10.5)
[2017-12-01] MEDS ORDERED: MEDROL DOSEPAK (DAY 1 BRKFST) (EDIT AFTER 0800) PO SCH ×2 (08:00)
[2017-12-01] MEDS ORDERED: MEDROL DOSEPAK (DAY 2 BRKFST, LUNCH, SUPPER) PO SCH (08:00)
[2017-12-01 08:04] LABS: ABSOLUTE LYMPHOCYTES# (MANUAL) 0.4 10^3/uL (0.5-4.7); ABSOLUTE NEUTROPHILS# (MANUAL) 1.2 10^3/uL (1.7-8.2); BASOPHILS % (MANUAL) 2 % (0-2); EOSINOPHILS % (MANUAL) 0 % (0-6); LYMPHOCYTES % (MANUAL) 22 % (13-45); MONOCYTES % (MANUAL) 0 % (3-13); SEGMENTED NEUTROPHILS % (MAN) 76 % (42-78); TOTAL CELLS COUNTED 50
[2017-12-01 08:06] LABS: PLATELET COMMENT DECREASED; RBC MORPHOLOGY COMMENT NORMO-CYTIC/CHROMIC
[2017-12-01 08:07] LABS: PLATELET COUNT 71 10^3/uL (150-450)
[2017-12-01] MEDS: 1/2 NORMAL SALINE 1,000 ML IV PRN (09:36)
[2017-12-01] MEDS: METFORMIN HCL 500 MG TABLET PO SCH (11:25)
[2017-12-01] MEDS ORDERED: NA PHOS,M-B/NA PHOS,DI-BA (ADULT) 133 ML ENEMA PR ONE (11:30)
[2017-12-01] MEDS ORDERED: GLIMEPIRIDE 1 MG TABLET PO SCH (12:00)
[2017-12-01] MEDS ORDERED: KETOROLAC TROMETHAMINE INJ/PF 30 MG/1 ML SDV ONE (12:47)
[2017-12-01] MEDS: MEDROL DOSEPAK (DAY 1 LUNCH & SUPPER) (EDIT AFTER 0800) PO SCH ×2 (12:51→17:03)
[2017-12-01] MEDS: CYCLOBENZAPRINE HCL 10 MG TABLET PO PRN (12:51)
[2017-12-01] MEDS ORDERED: BISACODYL 10 MG SUPP.RECT PR ONE (13:00)
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
[2017-12-01] MEDS: PROMETHAZINE HCL INJ 25 MG/1 ML VIAL IV PRN (13:49)
[2017-12-01] MEDS ORDERED: MEDROL DOSEPAK (DAY 2 HS) PO SCH (22:00)
[2017-12-01] MEDS ORDERED: MEDROL DOSEPAK (DAY 1 BEDTIME DOSE) (EDIT AFTER 0800) PO SCH (22:00)
[2017-12-01] MEDS: AMLODIPINE BESYLATE 5 MG TABLET PO SCH (22:22)
[2017-12-01] MEDS: MINOXIDIL 10 MG TABLET PO SCH (22:23)
[2017-12-01] MEDS: DIPHENHYDRAMINE HCL 25 MG CAPSULE PO PRN (22:28)
[2017-12-02] MEDS: HYDRALAZINE HCL 50 MG TABLET PO SCH ×4 (00:51→17:14)
[2017-12-02] MEDS: HYDROMORPHONE HCL INJ/PF 2 MG/ML AMPULE IV PRN ×4 (00:51→21:43)
[2017-12-02] MEDS: GABAPENTIN 100 MG CAPSULE PO SCH ×3 (05:16→21:36)
[2017-12-02] MEDS: LANSOPRAZOLE 30 MG TAB.RAP.DR PO SCH ×2 (05:16→17:59)
[2017-12-02 05:28] LABS: ABSOLUTE LYMPHOCYTES (AUTO) 0.4 10^3/uL (0.5-4.7); ABSOLUTE MONOCYTES (AUTO) 0.2 10^3/uL (0.1-1.4); ABSOLUTE NEUT (AUTO) 1.5 10^3/uL (1.7-8.2); BASOPHILS % (AUTO) 0.1 % (0-2); EOSINOPHILS % (AUTO) 0.1 % (0-6); HEMATOCRIT 42.7 % (37.9-51.0); LYMPHOCYTES % (AUTO) 18.6 % (13-45); MEAN CORPUSCULAR HGB CONC 35.1 g/dL (32.0-36.0); MEAN CORPUSCULAR VOLUME 97 fl (80-97); MONOCYTES % (AUTO) 8.6 % (3-13); RED BLOOD COUNT 4.41 10^6/uL (4.35-5.55); RED CELL DISTRIBUTION WIDTH 13.7 % (11.5-14.0); SEGMENTED NEUTROPHILS % (AUTO) 72.6 % (42-78); TOTAL CELLS COUNTED % (AUTO) 100 %; WHITE BLOOD COUNT 2.1 10^3/uL (4.0-10.5)
[2017-12-02 05:31] LABS: PLATELET COUNT 73 10^3/uL (150-450)
[2017-12-02] MEDS ORDERED: MEDROL DOSEPAK (DAY 3) PO SCH (08:00)
[2017-12-02] MEDS: MINOXIDIL 10 MG TABLET PO SCH ×2 (09:25→21:37)
[2017-12-02] MEDS: LOSARTAN POTASSIUM 50 MG TABLET PO SCH (09:26)
[2017-12-02] MEDS: MEDROL DOSEPAK (DAY 2 BRKFST, LUNCH, SUPPER) PO SCH ×2 (09:26→12:06)
[2017-12-02] MEDS ORDERED: GLIMEPIRIDE 1 MG TABLET PO SCH (10:00)
[2017-12-02] MEDS: METFORMIN HCL 500 MG TABLET PO SCH (12:06)
[2017-12-02] MEDS: CYCLOBENZAPRINE HCL 10 MG TABLET PO PRN (12:09)
[2017-12-02] MEDS: DIPHENHYDRAMINE HCL 25 MG CAPSULE PO PRN (12:24)
[2017-12-02] MEDS ORDERED: KETOROLAC TROMETHAMINE INJ/PF 30 MG/1 ML SDV IV PRN (15:09)
[2017-12-02] MEDS ORDERED: CLONIDINE 0.3 MG/24 HR PATCH.TDWK TD SCH (15:15)
[2017-12-02] MEDS ORDERED: ACETAMINOPHEN 325 MG TABLET PO PRN (15:21)
[2017-12-02] MEDS ORDERED: IBUPROFEN 400 MG TABLET PO PRN (15:23)
[2017-12-02] MEDS ORDERED: KETOROLAC TROMETHAMINE INJ/PF 30 MG/1 ML SDV IV ONE (15:26)
[2017-12-02] MEDS: AMLODIPINE BESYLATE 5 MG TABLET PO SCH (21:36)
[2017-12-02] MEDS ORDERED: MEDROL DOSEPAK (DAY 2 HS) PO SCH (22:00)
[2017-12-03] MEDS: HYDRALAZINE HCL 50 MG TABLET PO SCH ×2 (00:52→05:54)
[2017-12-03] MEDS: HYDROMORPHONE HCL INJ/PF 2 MG/ML AMPULE IV PRN (01:01)
[2017-12-03] MEDS: GABAPENTIN 100 MG CAPSULE PO SCH (05:54)
[2017-12-03] MEDS: LANSOPRAZOLE 30 MG TAB.RAP.DR PO SCH (05:54)
[2017-12-03] MEDS ORDERED: LANSOPRAZOLE 30 MG TAB.RAP.DR PO SCH (06:00)
[2017-12-03] MEDS ORDERED: MEDROL DOSEPAK (DAY 4) PO SCH (08:00)
[2017-12-03] MEDS ORDERED: MEDROL DOSEPAK (DAY 3) PO SCH (08:00)
[2017-12-03] MEDS ORDERED: IBUPROFEN 400 MG TABLET PO PRN (08:46)
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
[2017-12-03] MEDS: LOSARTAN POTASSIUM 50 MG TABLET PO SCH (09:10)
[2017-12-03] MEDS: MINOXIDIL 10 MG TABLET PO SCH (09:11)
[2017-12-03 09:46] VITALS: BP 113/68
[2017-12-03] MEDS ORDERED: (PENDING PHARMACY ID) (Losartan Potassium [Losartan Potassium] 100 MG) PO SCH (10:00)
[2017-12-03] MEDS ORDERED: (PENDING PHARMACY ID) (Metformin Hcl [Metformin Hcl Er] 500 MG) PO SCH (10:00)
[2017-12-03] MEDS ORDERED: (PENDING PHARMACY ID) (Lansoprazole [Lansoprazole] 30 MG) PO SCH (10:00)
[2017-12-03] MEDS ORDERED: LOSARTAN POTASSIUM 50 MG TABLET PO SCH (10:00)
[2017-12-03] MEDS ORDERED: GLIMEPIRIDE 1 MG TABLET PO SCH (10:00)
[2017-12-03] MEDS ORDERED: ASPIRIN 81 MG TABLET, CHEWABLE PO SCH (10:00)
[2017-12-03] MEDS ORDERED: LEVOTHYROXINE SODIUM 0.025 MG TABLET PO SCH (10:00)
[2017-12-03] MEDS ORDERED: (PENDING PHARMACY ID) (Glimepiride [Glimepiride] 2 MG) PO SCH (10:00)
[2017-12-03] MEDS ORDERED: GABAPENTIN 100 MG CAPSULE PO SCH (12:00)
[2017-12-04] MEDS ORDERED: MEDROL DOSEPAK (DAY 5) PO SCH (08:00)
[2017-12-04] MEDS ORDERED: MEDROL DOSEPAK (DAY 4) PO SCH (08:00)
[2017-12-05] MEDS ORDERED: MEDROL DOSEPAK (DAY 6) PO SCH (08:00)
[2017-12-05] MEDS ORDERED: MEDROL DOSEPAK (DAY 5) PO SCH (08:00)
[2017-12-06] MEDS ORDERED: MEDROL DOSEPAK (DAY 6) PO SCH (08:00)
== END 2017-12-03 10:50 | disposition home or self-care (01) | DRG 552 ==
LOC: ER 11:04 → OBSVTOIN 18:08 → EH 18:08 → 3W 22:10
PROVIDERS: ADMIT Internal Medicine; ATTEND Internal Medicine
DX: M54.14 Radiculopathy, thoracic region (principal); C91.11 Chronic lymphocytic leukemia of B-cell type in remission; I10 Essential (primary) hypertension; E03.9 Hypothyroidism, unspecified; G43.909 Migraine, unspecified, not intractable, without status migrainosus; K21.9 Gastro-esophageal reflux disease without esophagitis; K59.01 Slow transit constipation; T38.0X5A Adverse effect of glucocorticoids and synthetic analogues, initial encounter; E11.65 Type 2 diabetes mellitus with hyperglycemia; Z90.49 Acquired absence of other specified parts of digestive tract; Z87.891 Personal history of nicotine dependence; Z79.899 Other long term (current) drug therapy; Z88.6 Allergy status to analgesic agent; Z88.8 Allergy status to other drugs, medicaments and biological substances
CPT/HCPCS: 36415; 71045; 71275; 72146; 80048; 80053; 82550; 82553; 82962; 84443; 84484; 85025; 93005; 93010; 93306; 96374; 96376; 99285; J0360; J1170; J1885; J2405; J2550; J2930; J3010; J3490; J7509

== ENCOUNTER → 2017-12-10 | Outpatient (CLI) | payer MEDICARE, OTHER ==
[2017-12-10 13:46] LABS: ABSOLUTE LYMPHOCYTES (AUTO) 1.3 10^3/uL (0.5-4.7); ABSOLUTE MONOCYTES (AUTO) 0.3 10^3/uL (0.1-1.4); ABSOLUTE NEUT (AUTO) 2.9 10^3/uL (1.7-8.2); BASOPHILS % (AUTO) 0.3 % (0-2); EOSINOPHILS % (AUTO) 1.1 % (0-6); HEMATOCRIT 37.8 % (37.9-51.0); HEMOGLOBIN 13.6 g/dL (13.5-17.0); LYMPHOCYTES % (AUTO) 28.6 % (13-45); MEAN CORPUSCULAR HEMOGLOBIN 34.3 pg (27.0-33.4); MEAN CORPUSCULAR HGB CONC 36.1 g/dL (32.0-36.0); MEAN CORPUSCULAR VOLUME 95 fl (80-97); MONOCYTES % (AUTO) 7.3 % (3-13); PLATELET COUNT 139 10^3/uL (150-450); RED BLOOD COUNT 3.98 10^6/uL (4.35-5.55); RED CELL DISTRIBUTION WIDTH 13.6 % (11.5-14.0); SEGMENTED NEUTROPHILS % (AUTO) 62.7 % (42-78); TOTAL CELLS COUNTED % (AUTO) 100 %; WHITE BLOOD COUNT 4.6 10^3/uL (4.0-10.5)
[2017-12-10 14:13] LABS: ALANINE AMINOTRANSFERASE 79 U/L (21-72); ALBUMIN 3.4 g/dL (3.5-5.0); ALKALINE PHOSPHATASE 333 U/L (38-126); ANION GAP 9 (5-19); ASPARTATE AMINO TRANSFERASE 46 U/L (17-59); BILIRUBIN,DIRECT 0.6 mg/dL (0.0-0.4); BILIRUBIN,TOTAL 0.8 mg/dL (0.2-1.3); BLOOD UREA NITROGEN 21 mg/dL (7-20); CALCIUM 8.8 mg/dL (8.4-10.2); CARBON DIOXIDE 26 mmol/L (22-30); CHLORIDE 100 mmol/L (98-107); GLUCOSE 84 mg/dL (75-110); POTASSIUM 3.8 mmol/L (3.6-5.0); SODIUM 134.8 mmol/L (137-145); TOTAL PROTEIN 5.8 g/dL (6.3-8.2)
[2017-12-10 14:25] LABS: ERYTHROCYTE SEDIMENTATION RATE 65 mm/hr (0-20)
--- NOTE | 2017-12-10 14:27 | RADIOLOGY REPORT (SQ) ---
EXAM DESCRIPTION: CHEST PA/LATERAL COMPLETED DATE/TIME: 12/10/2017 1:12 pm REASON FOR STUDY: FEVER, UNSPECIFIED COMPARISON: 11/29/2017 EXAM PARAMETERS: NUMBER OF VIEWS: two views TECHNIQUE: Digital Frontal and Lateral radiographic views of the chest acquired. RADIATION DOSE: NA LIMITATIONS: none FINDINGS: LUNGS AND PLEURA: Slight scarring or atelectasis at the lung bases, slightly more so on t he left. No acute pulmonary consolidation. No pneumothorax or pleural effusion. MEDIASTINUM AND HILAR STRUCTURES: No masses or contour abnormalities. HEART AND VASCULAR STRUCTURES: Heart normal size. No evidence for failure. BONES: No acute findings. HARDWARE: None in the chest. OTHER: No other significant finding. IMPRESSION: 1. Stable examination of the chest since the prior study dated 11/29/2017. Slight bibas ilar atelectasis or scar. No acute pulmonary consolidation. TECHNICAL DOCUMENTATION: JOB ID: [id number] [employer]- All Rights Reserved Reading location - IP/workstation name: [email or web address]
== END ==
LOC: OD 12:26
PROVIDERS: ATTEND Internal Medicine
DX: C91.10 Chronic lymphocytic leukemia of B-cell type not having achieved remission (principal); R50.9 Fever, unspecified; I10 Essential (primary) hypertension; M79.10 Myalgia, unspecified site
CPT/HCPCS: 36415; 71046; 80053; 84443; 85025; 85652; 87040

== ENCOUNTER → 2017-12-18 | Outpatient (CLI) | payer MEDICARE, OTHER ==
--- NOTE | 2017-12-19 14:51 | RADIOLOGY REPORT (SQ) ---
EXAM DESCRIPTION: PET CT SKULL/THIGH COMPLETED DATE/TIME: 12/18/2017 9:55 pm REASON FOR STUDY: C91.90 LYMPHOID LEUKEMIA, UNSPECIFIED NOT HAVING ACHIEVED REMISSION C91.90 LYMPHO ID LEUKEMIA, UNSPECIFIED NOT HAVING ACHIEVED RE COMPARISON: CT angio chest 11/29/2017 RADIONUCLIDE AND DOSE: 12 mCi F18 FDG The route of agent administration: Intravenous FASTING BLOOD SUGAR: 110 mg/dl CONTRAST TYPE AND DOSE: No CT contrast given. TECHNIQUE: Blood glucose level was verified. Above dose of FDG was injected intravenously. 2-D seg mented attenuation correction images were obtained from the base of the skull to the midthighs. Nonc ontrast CT images were obtained for attenuation correction and fusion with emission images. CT image s were performed without oral or intravenous contrast and are not sensitive for parenchymal lesions. A series of overlapping emission PET images were obtained. Images reviewed and manipulated at [facility] work station by the radiologist. Images stored on PACS. LIMITATIONS: None. FINDINGS: HEAD AND NECK: No areas of abnormal metabolic activity in the soft tissues of the head and neck. CHEST: No areas of abnormal metabolic activity in the chest. ABDOMEN AND PELVIS: In the right retroperitoneum, there is diffuse increased activity within and arou nd the right adrenal gland without a discrete mass. Right adrenal activity SUV of 4. There are enlarged right upper abdominal hypermetabolic retroperitoneal lymph nodes as follows: 3.2 x 1.2 cm right retrocrural lymph node axial image 154 SUV of 4 2.7 x 2.6 cm portacaval space lymph node image 47, SUV 4.1 1.4 x 0.9 cm node between the pancreatic head and inferior vena cava axial image 159, SUV 3.1 PROXIMAL LOWER EXTREMITIES: No areas of abnormal metabolic activity in the soft tissues of the lower extremities. BONES: No abnormal metabolic activity in the visualized skeleton. ADDITIONAL CT FINDINGS: Coronary artery calcifications, calcified aortic valve, hiatal hernia, clips post cholecystectomy, 5 cm right lower pole renal cortical cyst OTHER: Liver background activity 2.0. Blood pool background activity SUV 1.5 IMPRESSION: Hypermetabolic right adrenal gland with adjacent hypermetabolic enlarged upper retroperi toneal lymph nodes TECHNICAL DOCUMENTATION: JOB ID: [id number]- All Rights Reserved Reading location - IP/workstation name: [email or web address]
== END ==
LOC: RAD 19:18
PROVIDERS: ATTEND Internal Medicine Medical Oncology
DX: C91.90 Lymphoid leukemia, unspecified not having achieved remission (principal)
CPT/HCPCS: 78815; A9552

== ENCOUNTER → 2018-01-14 | Day surgery (SDC) | payer MEDICARE, OTHER ==
--- NOTE | 2018-01-14 14:53 | RADIOLOGY REPORT (SQ) ---
EXAM DESCRIPTION: U/S BIOPSY SUPERFIC LYMPH NODE COMPLETED DATE/TIME: 01/14/2018 11:03 am REASON FOR STUDY: ENLARGED LYMPH NODES, UNSPECIFIED R59.9 ENLARGED LYMPH NODES, UNSPECIFIED COMPARISON: PET-CT dated 12/18/2017. TECHNIQUE: The procedure was discussed with the patient and the patient agreed to proceed. The patient was scanned and multiple abnormal lymph nodes were identified in the posterior right cerv ical region. This correlates with findings on prior imaging studies. A selected abnormal lymph node was targeted for ultrasound-guided core biopsy. After sterile skin prep and 10 mL local lidocaine 1% for skin and deep tissue anesthesia, a 14 gauge coaxial core biopsy needle was used to obtain several cores of tissue from the selected abnormal lymp h node. There were no immediate post-procedure complications. The samples were transferred to the pathology neonatal doctor who was in attendance during the proce dure for routine pathology evaluation and for flow cytometry. Pathology is pending. LIMITATIONS: None. FINDINGS: Ultrasound guided right posterior cervical lymph node biopsy as described above. IMPRESSION: ULTRASOUND-GUIDED CORE BIOPSY OF AN ABNORMAL RIGHT POSTERIOR CERVICAL LYMPH NODE. COMMENT: Patient medication list reviewed: Yes- Quality ID# [id number]:Eligible professional attests to doc umenting in the medical record they obtained, updated, or reviewed the patient's current medications. TECHNICAL DOCUMENTATION: JOB ID: [id number] [employer] [place]- All Rights Reserved Reading location - IP/workstation name: [email or web address]
== END ==
LOC: RAD 09:43
PROVIDERS: ATTEND Internal Medicine Medical Oncology
DX: R59.9 Enlarged lymph nodes, unspecified (principal)
CPT/HCPCS: 38505; 88184; 88185; 88233; 88262; 88305; 88341; 88342

== ENCOUNTER → 2018-02-13 | Outpatient (CLI) | payer MEDICARE, OTHER ==
[2018-02-13 10:00] LABS: ALANINE AMINOTRANSFERASE 30 U/L (21-72); ALBUMIN 4.2 g/dL (3.5-5.0); ALKALINE PHOSPHATASE 123 U/L (38-126); ANION GAP 12 (5-19); ASPARTATE AMINO TRANSFERASE 28 U/L (17-59); BILIRUBIN,DIRECT 0.3 mg/dL (0.0-0.4); BILIRUBIN,TOTAL 1.2 mg/dL (0.2-1.3); BLOOD UREA NITROGEN 19 mg/dL (7-20); CALCIUM 9.2 mg/dL (8.4-10.2); CARBON DIOXIDE 28 mmol/L (22-30); CHLORIDE 103 mmol/L (98-107); CHOLESTEROL 139.94 mg/dL (0-200); GLUCOSE 137 mg/dL (75-110); POTASSIUM 4.4 mmol/L (3.6-5.0); SODIUM 142.6 mmol/L (137-145); TOTAL PROTEIN 6.2 g/dL (6.3-8.2); TRIGLYCERIDES 98 mg/dL (<150)
[2018-02-13 10:14] LABS: DIRECT LDL 101 mg/dL (<100)
[2018-02-13 12:03] LABS: ABSOLUTE EOSINOPHILS # (AUTO) 0.1 10^3/uL (0.0-0.6); ABSOLUTE LYMPHOCYTES (AUTO) 0.8 10^3/uL (0.5-4.7); ABSOLUTE MONOCYTES (AUTO) 0.1 10^3/uL (0.1-1.4); ABSOLUTE NEUT (AUTO) 1.2 10^3/uL (1.7-8.2); BASOPHILS % (AUTO) 0.2 % (0-2); HEMATOCRIT 37.3 % (37.9-51.0); HEMOGLOBIN 13.3 g/dL (13.5-17.0); LYMPHOCYTES % (AUTO) 38.2 % (13-45); MEAN CORPUSCULAR HEMOGLOBIN 34.5 pg (27.0-33.4); MEAN CORPUSCULAR HGB CONC 35.5 g/dL (32.0-36.0); MEAN CORPUSCULAR VOLUME 97 fl (80-97); MONOCYTES % (AUTO) 4.2 % (3-13); RED BLOOD COUNT 3.85 10^6/uL (4.35-5.55); RED CELL DISTRIBUTION WIDTH 15.1 % (11.5-14.0); SEGMENTED NEUTROPHILS % (AUTO) 54.4 % (42-78); TOTAL CELLS COUNTED % (AUTO) 100 %; WHITE BLOOD COUNT 2.2 10^3/uL (4.0-10.5)
[2018-02-13 13:27] LABS: PLATELET COUNT 69 10^3/uL (150-450)
== END ==
LOC: OD 08:17
PROVIDERS: ATTEND Internal Medicine
DX: E11.8 Type 2 diabetes mellitus with unspecified complications (principal); I10 Essential (primary) hypertension; E78.5 Hyperlipidemia, unspecified; E03.9 Hypothyroidism, unspecified
CPT/HCPCS: 36415; 80053; 80061; 83036; 84443; 85025

== ENCOUNTER → 2018-04-08 | Outpatient (CLI) | payer MEDICARE, OTHER ==
--- NOTE | 2018-04-08 13:03 | RADIOLOGY REPORT (SQ) ---
EXAM DESCRIPTION: CHEST PA/LATERAL COMPLETED DATE/TIME: 04/08/2018 11:53 am REASON FOR STUDY: ACUTE BRONCHITIS COMPARISON: 12/22/2014. EXAM PARAMETERS: NUMBER OF VIEWS: two views TECHNIQUE: Digital Frontal and Lateral radiographic views of the chest acquired. RADIATION DOSE: NA LIMITATIONS: none FINDINGS: LUNGS AND PLEURA: No opacities, masses or pneumothorax. No pleural effusion. MEDIASTINUM AND HILAR STRUCTURES: No masses or contour abnormalities. HEART AND VASCULAR STRUCTURES: Heart normal size. No evidence for failure. BONES: No acute findings. HARDWARE: None in the chest. OTHER: No other significant finding. IMPRESSION: NO SIGNIFICANT RADIOGRAPHIC FINDING IN THE CHEST. TECHNICAL DOCUMENTATION: JOB ID: [id number] [employer] All Rights Reserved Reading location - IP/workstation name: [email or web address]
== END ==
LOC: OD 11:29
PROVIDERS: ATTEND Family Medicine Geriatric Medicine
DX: J20.9 Acute bronchitis, unspecified (principal)
CPT/HCPCS: 71046

== ENCOUNTER 2018-05-09 07:06 | Day surgery (SDC) | payer MEDICARE, OTHER ==
[2018-05-09] MEDS ORDERED: ONDANSETRON HCL INJ/PF 4 MG/2 ML SDV ONE (07:16)
[2018-05-09] MEDS ORDERED: DIPHENHYDRAMINE HCL 50 MG/ML VIAL ONE (07:16)
[2018-05-09] MEDS ORDERED: GLUCAGON,HUMAN RECOMB 1 MG INJ ONE (07:17)
[2018-05-09] MEDS ORDERED: EPINEPHRINE INJ 1 MG/10 ML DISP.SYRIN ONE (07:17)
[2018-05-09] MEDS ORDERED: NALOXONE HCL INJ/PF 0.4 MG/1 ML SDV ONE (07:17)
[2018-05-09] MEDS ORDERED: FLUMAZENIL INJ 0.5 MG/5 ML VIAL ONE (07:17)
[2018-05-09] MEDS: MIDAZOLAM 2 MG/2 ML INJ ONE ×3 (07:46→08:05)
[2018-05-09] MEDS: FENTANYL CITRATE INJ/PF 100 MCG/2 ML AMPUL ONE ×2 (07:48→08:21)
--- NOTE | 2018-05-09 09:04 | Discharge Summary ---
Discharge Summary (SDC) - Discharge Final Diagnosis: Polyps of the rectosigmoid junction Date of Surgery: 05/09/18 Discharge Date: 05/09/18 Condition: Good Treatment or Instructions: [place] [id number] POST ENDOSCOPY DISCHARGE INSTRUCTIONS 1. Diet: Start clear liquids that a regular diet as tolerated. 2. Resume all preoperative medications. All oral anticoagulants and aspirins can be resumed 24 hours after procedure. 3. If a polypectomy was performed some bleeding per rectum may occur. This should stop within 3 days. If not, please contact the office. 4. If you had a colonoscopy you may experience some bloating and delayed return of normal bowel function for several days, your regular bowel movement pattern should resume within a week. 5. Please contact [facility] at to make an appointment with Dr. Sheehan for 1 to 3 weeks following procedure. 6. If you have any questions or concerns regarding your care,treatment plan or follow up, please contact our office. 7. Per clinical guidelines we recommend you undergo a repeat colonoscopy in 3-5 years pending final path report. Referrals: TAMI CHAMPAGNE MD [Primary Care Provider] - Discharge Activity: Activity As Tolerated Home Care Assistance: None Needed Report the Following to Your Physician Immediately: Shortness of Breath, In crease in Pain, Fever over 101 Degrees
--- NOTE | 2018-05-09 09:08 | Operative Report ---
Operative Report DATE OF SURGERY: 05/09/18 PREOPERATIVE DIAGNOSIS: Personal history of colon polyps POSTOPERATIVE DIAGNOSIS: Same with polyps of the rectosigmoid junction OPERATION: 1. Total colonoscopy to cecum. 2. Hot snare polypectomy of polyp at 21 centimeters from anal verge. 3. Cold forceps polypectomy x2 polyps at rectosigmoid junction SURGEON: RONDA ROJAS ANESTHESIA: Moderate Sedation TISSUE REMOVED OR ALTERED: Polyps COMPLICATIONS: None ESTIMATED BLOOD LOSS: Scant INTRAOPERATIVE FINDINGS: See below PROCEDURE: Obtaining informed consent the patient was taken from the preoperative holding area to the main endoscopy suite where monitoring devices were attached to the patient. Plan and surgical timeout were conducted The patient was placed in the left lateral decubitus position with knees to chest. A perianal examination was performed. There was no visible or palpable anorectal pathology. Sphincter tone was felt to be normal. The flexible adult colonoscope was advanced through the anal rectal canal, all the way to the cecum. Visualization of the cecum was achieved and the ileocecal valve, the appendiceal orifice and transillumination of the anterior abdominal wall. This was an excellent study on a reasonably well-prepped bowel. There was some residual green particulate like he stools easily aspirated. Of note the patient had a elongated colon redundancy making the procedure challenging from a endoscopist standpoint. Patient required significant amount of body manipulation as well as anterior abdominal wall the patient should manipulate the scope all the way to the cecum. The colonoscope was withdrawn slowly and methodically checked and the mucosa carefully. There was no evidence of tumor, stricture, bleeding; there was one slightly pedunculated polyp and 2 small sessile polyps in the rectosigmoid area. The pedunculated polyp was removed successfully and retrieved with a hot snare device and medium strength. It was approximately small sessile polyps were removed with the cold forceps device and sent as a separate container. Bleeding was minimal. . There was no evidence of diverticuloses. The scope was slowly withdrawn through the anal rectal canal. Complete visualization of the rectum was achieved with photodocumentation. The scope was withdrawn to the patient's anus. The patient tolerated the procedure well and was taken to the recovery area in stable condition. Per surveillance guidelines, patient will be appropriate candidate for follow-up colonoscopy in 3-5 years pending final path report.
[2018-05-09 09:47] VITALS: BP 127/74
== END 2018-05-09 09:50 | disposition home or self-care (01) ==
LOC: END 07:06
PROVIDERS: ATTEND Surgery
DX: Z12.11 Encounter for screening for malignant neoplasm of colon (principal); D12.8 Benign neoplasm of rectum; K57.30 Diverticulosis of large intestine without perforation or abscess without bleeding; Z86.010 Personal history of colon polyps; I10 Essential (primary) hypertension; E11.9 Type 2 diabetes mellitus without complications; C91.90 Lymphoid leukemia, unspecified not having achieved remission; E03.9 Hypothyroidism, unspecified; C85.90 Non-Hodgkin lymphoma, unspecified, unspecified site; Z79.899 Other long term (current) drug therapy; Z01.818 Encounter for other preprocedural examination; Z79.82 Long term (current) use of aspirin; Z88.8 Allergy status to other drugs, medicaments and biological substances; Z85.828 Personal history of other malignant neoplasm of skin; Z88.5 Allergy status to narcotic agent
CPT/HCPCS: 45380; 45385; 88305 ×2; J2250; J3010; J0171; J1200; J1610; J2310; J2405; J3490

== ENCOUNTER → 2018-05-23 | Outpatient (CLI) | payer MEDICARE, OTHER ==
--- NOTE | 2018-05-23 10:23 | RADIOLOGY REPORT (SQ) ---
EXAM DESCRIPTION: CT SOFT TISSUE NECK WITHOUT COMPLETED DATE/TIME: 05/23/2018 7:38 am REASON FOR STUDY: LOCALIZED ENLARGED LYMPH NODES (R59.0), CLL LYMPHOMA (C91.10) R59.0 LOCALIZED ENL ARGED LYMPH NODES C91.10 CHRONIC LYMPHOCYTIC LEUK OF B-CELL TYPE NOT ACHIEVE R COMPARISON: PET-CT dated 12/18/2017. CT neck dated 04/08/2009. TECHNIQUE: Noncontrast scanning from skull base through lung apices with review of bone, soft tissue and lung windows. Reconstructed coronal and sagittal MPR images reviewed. All images stored on PAC S. All CT scanners at this facility use dose modulation, iterative reconstruction, and/or weight based d osing when appropriate to reduce radiation dose to as low as reasonably achievable (ALARA). [facility]: Dose Right [facility]: CareDose [facility]: Dose Right [facility]: Teradose 4D [facility]: [employer] RADIATION DOSE: mGy. LIMITATIONS: None. FINDINGS: SKULL BASE: Intact. MAJOR SALIVARY GLANDS: No solid or cystic masses. No inflammatory changes. LYMPHADENOPATHY: Extensive bilateral cervical adenopathy in the posterior cervical chain from the ang le of the mandible to the supraclavicular region. Numerous enlarged lymph nodes. The largest lymph node on the left side measures approximately 1.2 x 1.8 cm and the largest single lymph node on the ri ght side measures approximately 1.6 x 2.2 cm. There is a large collection of matted lymph nodes in t he superior right posterior cervical chain at the level of the mandible. MUCOSAL MASSES OR ASYMMETRY: No mucosal masses or asymmetry. LARYNX/CORDS: No abnormal findings. LUNG APICES: Clear. BONES: Intact. THYROID: Normal size. No masses. PARANASAL SINUSES: Clear. OTHER: No other significant finding. IMPRESSION: EXTENSIVE BILATERAL CERVICAL ADENOPATHY, WORSE ON THE RIGHT. LYMPH NODES HAVE INCREASED IN SIZE AND NUMBER SINCE THE PRIOR PET-CT IN DECEMBER 2017. TECHNICAL DOCUMENTATION: JOB ID: [id number] Quality ID # 436: Final reports with documentation of one or more dose reduction techniques (e.g., Au tomated exposure control, adjustment of the mA and/or kV according to patient size, use of iterative reconstruction technique) 2010 [employer]- All Rights Reserved Reading location - IP/workstation name: [email or web address]
== END ==
LOC: RAD 07:18
PROVIDERS: ATTEND Internal Medicine
DX: C91.10 Chronic lymphocytic leukemia of B-cell type not having achieved remission (principal); R59.0 Localized enlarged lymph nodes
CPT/HCPCS: 70490

== ENCOUNTER → 2018-06-02 | Outpatient (CLI) | payer MEDICARE, OTHER ==
--- NOTE | 2018-06-03 12:46 | RADIOLOGY REPORT (SQ) ---
EXAM DESCRIPTION: PET CT SKULL/THIGH COMPLETED DATE/TIME: 06/02/2018 9:50 pm REASON FOR STUDY: C91.90 LYMPHOID LEUKEMIA, UNSPECIFIED NOT HAVING ACHIEVED REMISSION C91.90 LYMPHO ID LEUKEMIA, UNSPECIFIED NOT HAVING ACHIEVED RE COMPARISON: 12/18/2017. RADIONUCLIDE AND DOSE: 10 mCi F18 FDG The route of agent administration: Intravenous FASTING BLOOD SUGAR: 104 mg/dl CONTRAST TYPE AND DOSE: No CT contrast given. TECHNIQUE: Blood glucose level was verified. Above dose of FDG was injected intravenously. 2-D seg mented attenuation correction images were obtained from the base of the skull to the midthighs. Nonc ontrast CT images were obtained for attenuation correction and fusion with emission images. CT image s were performed without oral or intravenous contrast and are not sensitive for parenchymal lesions. A series of overlapping emission PET images were obtained. Images reviewed and manipulated at [facility] work station by the radiologist. Images stored on PACS. LIMITATIONS: None. FINDINGS: HEAD AND NECK: There is extensive bilateral cervical adenopathy, right greater than left. Lymph nodes have increased in size since the prior PET-CT. Mean SUV values measure between 2.18 and 3.68. New supraclavicular adenopathy. Right supraclavicular lymph node measures 1.6 cm with mean S UV 2.29. New right axillary adenopathy. The largest lymph node in the right axilla measures 1.5 x 2 .0 cm. Mean SUV 2.37. CHEST: No areas of abnormal metabolic activity in the chest. ABDOMEN AND PELVIS: No areas of abnormal metabolic activity in the abdomen or pelvis. Expected physi ologic activity is present in the genitourinary system and bowel. PROXIMAL LOWER EXTREMITIES: No areas of abnormal metabolic activity in the soft tissues of the lower extremities. BONES: No abnormal metabolic activity in the visualized skeleton. ADDITIONAL CT FINDINGS: Cortical scarring and cortical cyst in the right kidney. No additional signi ficant findings on the noncontrast CT images. OTHER: No other significant findings. Background blood pool activity mean SUV 1.56. Background live r activity mean SUV 1.79. IMPRESSION: 1. CERVICAL ADENOPATHY HAS WORSENED AND THERE IS NEW SUPRACLAVICULAR AND RIGHT AXILLARY ADENOPATHY. 2. PREVIOUSLY SEEN INCREASED ACTIVITY IN THE RIGHT ADRENAL GLAND IS NO LONGER PRESENT. PREVIOUSLY SE EN HYPERMETABOLIC LYMPH NODES IN THE UPPER RETROPERITONEUM CURRENTLY DEMONSTRATE NO SIGNIFICANT ACTIV ITY. TECHNICAL DOCUMENTATION: JOB ID: [id number] [employer] [facility] [employer]- All Rights Reserved Reading location - IP/workstation name: [email or web address]
== END ==
LOC: RAD 19:15
PROVIDERS: ATTEND Internal Medicine Medical Oncology
DX: C91.90 Lymphoid leukemia, unspecified not having achieved remission (principal)
CPT/HCPCS: 78815; A9552

== ENCOUNTER 2019-04-15 08:12 | Outpatient (CLI) | payer MEDICARE, OTHER ==
[~2019-04-15 08:12] MED LIST: ACETAMINOPHEN 325 MG TABLET PO PRN; DEXTROSE 5%-WATER 250 ML IV PRN; DIPHENHYDRAMINE HCL 50 MG/ML VIAL IV PRN; IMMUNE GLOB,GAM CAPRYLATE(IGG) 40 GM, IMMUNE GLOB,GAM CAPRYLATE(IGG) 10 GM in CONTAINER... IV PRN
[2019-04-15 08:35] VITALS: BP 127/89
== END 2019-04-15 12:19 | disposition home or self-care (01) ==
LOC: II 08:12 → 5TH 08:38 → II 12:19
PROVIDERS: ATTEND Internal Medicine
DX: C91.11 Chronic lymphocytic leukemia of B-cell type in remission (principal)
CPT/HCPCS: 96365; 96366; 96375; J1561 ×2; J1200; A9270; J3490

== ENCOUNTER → 2019-04-17 | Emergency (ER) | payer MEDICARE, OTHER ==
[~2019-04-17] MED LIST changes: +ACETAMINOPHEN 325 MG TABLET PO ONE; -ACETAMINOPHEN 325 MG TABLET PO PRN; +AMLODIPINE BESYLATE 5 MG TABLET PO ONE; -DEXTROSE 5%-WATER 250 ML IV PRN; +DIPHENHYDRAMINE HCL 50 MG/ML VIAL IV ONE; -DIPHENHYDRAMINE HCL 50 MG/ML VIAL IV PRN; +FENTANYL CITRATE INJ/PF 100 MCG/2 ML AMPUL IV ONE; +HYDROMORPHONE HCL INJ/PF 2 MG/ML AMPULE IV ONE; -IMMUNE GLOB,GAM CAPRYLATE(IGG) 40 GM, IMMUNE GLOB,GAM CAPRYLATE(IGG) 10 GM in CONTAINER... IV PRN; +KETOROLAC TROMETHAMINE INJ/PF 30 MG/1 ML SDV IV ONE; +LEVOTHYROXINE SODIUM 0.025 MG TABLET PO ONE; +LOSARTAN POTASSIUM 50 MG TABLET PO ONE; +METOCLOPRAMIDE HCL INJ/PF 10 MG/2 ML SDV IV ONE; +MINOXIDIL 10 MG TABLET ONE; +MINOXIDIL 10 MG TABLET PO ONE; +NORMAL SALINE 1000 ML 1,000 ML IV ONE; +NORMAL SALINE 1000 ML 1,000 ML IV SCH
--- NOTE | 2019-04-17 11:46 | ER Document Report ---
ED Medical Screen (RME) - General Chief Complaint: Headache Stated Complaint: HEADACHE/DEHYDRATION/NAUSEA Time Seen by Provider: 04/17/19 11:36 Mode of Arrival: Ambulatory Notes: 74-year-old male presented to ED for consistent headache. He was recently treated for ear infection on the left side with Levaquin. He was seen yesterday and they wanted to start him on prednisone but he did not start the prednisone yet because he just took IVIG Sunday. He states last time he had IVIG with steroids his sugar shot up when he was in the hospital for high blood sugar. I did speak with Dr. Shaila diamond he recommended getting a CT of the head with contrast get a CBC CMP and give him a liter of normal saline. These will be ordered. I have greeted and performed a rapid initial assessment of this patient. A comprehensive ED assessment and evaluation of the patient, analysis of test results and completion of medical decision making process will be conducted by an additional ED providers. TRAVEL OUTSIDE OF THE [place] IN LAST 30 DAYS: No - Related Data Allergies/Adverse Reactions: JUDSON Inhibitors [Judson Inhibitors] Allergy (Verified 04/17/19 11:36) 1st degree AV block enalapril Allergy (Verified 04/17/19 11:36) coughing, wheezing, difficulty breathing metoprolol [From Lopressor] Allergy (Verified 04/17/19 11:36) airway closure morphine Allergy (Verified 04/17/19 11:36) cramping nitroglycerin Allergy (Verified 04/17/19 11:36) headache prazosin [From Minipress] Allergy (Verified 04/17/19 11:36) hyponaturemia propranolol [From Inderal LA] Allergy (Verified 04/17/19 11:36) airway closure valsartan Allergy (Verified 04/17/19 11:36) Hives beta blockers Allergy (Uncoded 04/17/19 11:36) airway closure diuretics Allergy (Uncoded 04/17/19 11:36) hives, swelling, hyponaturemia, hypokalemia Past Medical History - Past Medical History Cardiac Medical History: Reports: Hx Hypertension Denies: Hx Coronary Artery Disease, Hx Heart Attack Pulmonary Medical History: Reports: Hx COPD, Hx Pneumonia Denies: Hx Asthma, Hx Bronchitis, Hx Tuberculosis Neurological Medical History: Reports: Hx Migraine. Denies: Hx Cerebrovascular Accident, Hx Seizures Endocrine Medical History: Reports: Hx Diabetes Mellitus Type 2, Hx Hypothyroidism. Denies: Hx Hyperthyroidism Renal/ Medical History: Denies: Hx Peritoneal Dialysis Malignancy Medical History: Reports Hx Leukemia, Reports Hx Lymphoma GI Medical History: Reports: Hx Gastroesophageal Reflux Disease Musculoskeltal Medical History: Denies Hx Arthritis Past Surgical History: Reports: Hx Appendectomy, Hx Cholecystectomy, Hx Vascular Surgery. Denies: Hx Pacemaker - Immunizations Hx Diphtheria, Pertussis, Tetanus Vaccination: Yes Physical Exam - Vital signs Vitals: Temp Pulse Resp BP Pulse Ox 98.4 F 98 18 115/79 94 04/17/19 10:51 04/17/19 10:51 04/17/19 10:51 04/17/19 10:51 04/17/19 10:51 Course - Vital Signs Vital signs: Temp Pulse Resp BP Pulse Ox 98.4 F 98 18 115/79 94 04/17/19 10:51 04/17/19 10:51 04/17/19 10:51 04/17/19 10:51 04/17/19 10:51
[2019-04-17 12:41] LABS: ABSOLUTE LYMPHOCYTES (AUTO) 0.8 10^3/uL (0.5-4.7); ABSOLUTE MONOCYTES (AUTO) 0.1 10^3/uL (0.1-1.4); ABSOLUTE NEUT (AUTO) 1.2 10^3/uL (1.7-8.2); BASOPHILS % (AUTO) 0.4 % (0-2); EOSINOPHILS % (AUTO) 0.8 % (0-6); HEMATOCRIT 38.2 % (37.9-51.0); HEMOGLOBIN 13.2 g/dL (13.5-17.0); LYMPHOCYTES % (AUTO) 37.5 % (13-45); MEAN CORPUSCULAR HEMOGLOBIN 33.3 pg (27.0-33.4); MEAN CORPUSCULAR HGB CONC 34.6 g/dL (32.0-36.0); MEAN CORPUSCULAR VOLUME 96 fl (80-97); MONOCYTES % (AUTO) 4.6 % (3-13); RED BLOOD COUNT 3.97 10^6/uL (4.35-5.55); RED CELL DISTRIBUTION WIDTH 14.1 % (11.5-14.0); SEGMENTED NEUTROPHILS % (AUTO) 56.7 % (42-78); TOTAL CELLS COUNTED % (AUTO) 100 %; WHITE BLOOD COUNT 2.1 10^3/uL (4.0-10.5)
[2019-04-17 12:55] LABS: ALBUMIN 3.9 g/dL (3.5-5.0); ALKALINE PHOSPHATASE 109 U/L (38-126); ANION GAP 8 (5-19); ASPARTATE AMINO TRANSFERASE 39 U/L (17-59); BILIRUBIN,TOTAL 0.7 mg/dL (0.2-1.3); BLOOD UREA NITROGEN 17 mg/dL (7-20); CALCIUM 8.4 mg/dL (8.4-10.2); CARBON DIOXIDE 28 mmol/L (22-30); CHLORIDE 103 mmol/L (98-107); GLUCOSE 114 mg/dL (75-110); POTASSIUM 3.7 mmol/L (3.6-5.0); TOTAL PROTEIN 5.9 g/dL (6.3-8.2)
[2019-04-17 13:30] LABS: PLATELET COUNT 49 10^3/uL (150-450)
--- NOTE | 2019-04-17 17:51 | RADIOLOGY REPORT (SQ) ---
EXAM DESCRIPTION: CT ORBIT/SELLA WITHOUT COMPLETED DATE/TIME: 04/17/2019 3:59 pm REASON FOR STUDY: left ear pain, HOLLEY, recent infection. Looking at mastoids. COMPARISON: None. TECHNIQUE: Noncontrasted images through the orbits windowed for bone and soft tissue. Additional co socorro and sagittal reconstructed images reviewed. All images stored on PACS. All CT scanners at this facility use dose modulation, iterative reconstruction, and/or weight based d osing when appropriate to reduce radiation dose to as low as reasonably achievable (ALARA). [facility]: Dose Right [facility]: CareDose [facility]: Dose Right [facility]: Teradose 4D [facility]: Smart [employer] RADIATION DOSE: CT Rad equipment meets quality standard of care and radiation dose reduction techniq ues were employed. CTDIvol: 30.4 mGy. DLP: 374 mGy-cm. mGy. LIMITATIONS: None. FINDINGS: FACIAL BONES: No fracture or bone lesion. ORBITS: Intact. No fracture. Symmetric intact globes and retroorbital soft tissues. PARANASAL SINUSES: Clear. No significant mucosal thickening, mass or fluid. No nasal polyps. Maxilla ry sinus outlets are patent. SOFT TISSUES: No mass or edema. INFERIOR BRAIN: Limited view. No acute findings. OTHER: No other significant finding. IMPRESSION: NO ACUTE FINDINGS. Please see separate dictation for CT head same date. TECHNICAL DOCUMENTATION: JOB ID: [id number] Quality ID # 436: Final reports with documentation of one or more dose reduction techniques (e.g., Au tomated exposure control, adjustment of the mA and/or kV according to patient size, use of iterative reconstruction technique) 2010 [employer]- All Rights Reserved Reading location - IP/workstation name: [email or web address]
--- NOTE | 2019-04-17 17:54 | RADIOLOGY REPORT (SQ) ---
EXAM DESCRIPTION: CT HEAD WITHOUT COMPLETED DATE/TIME: 04/17/2019 3:59 pm REASON FOR STUDY: Headache history CLL. COMPARISON: PET CT, 06/02/2018. . TECHNIQUE: Axial images acquired through the brain without intravenous contrast. Images reviewed wi th bone, brain and subdural windows. Images stored on PACS. All CT scanners at this facility use dose modulation, iterative reconstruction, and/or weight based d osing when appropriate to reduce radiation dose to as low as reasonably achievable (ALARA). [facility]: Dose Right [facility]: CareDose [facility]: Dose Right [facility]: Teradose 4D [facility]: Smart [employer] RADIATION DOSE: CT Rad equipment meets quality standard of care and radiation dose reduction techniq ues were employed. CTDIvol: 53.2 mGy. DLP: 1124 mGy-cm. mGy. LIMITATIONS: None. FINDINGS: VENTRICLES: Normal size and contour. CEREBRUM: No masses. No hemorrhage. No midline shift. No evidence for acute infarction. Normal gra y-white matter differentiation. Mild patchy periventricular and deep white matter hypodense attenuat ion consistent with mild chronic small vessel ischemic change. There is intracranial atherosclerosis . CEREBELLUM: No masses. No hemorrhage. No alteration of density. No evidence for acute infarction. EXTRAAXIAL SPACES: There are bilateral hypodense fluid collections along the cerebral convexities. F ocal acute subdural hemorrhage at the left lateral parietal dura measuring 1.9 from anterior to poste rior by 0.5 cm thickness. Minimal mass effect with mild flattening of the sulci bilaterally. No mid line shift or evidence of herniation. ORBITS AND GLOBE: No intra- or extraconal masses. Normal contour of globe without masses. CALVARIUM: No fracture. PARANASAL SINUSES: No fluid or mucosal thickening. SOFT TISSUES: No mass or hematoma. OTHER: No other significant finding. IMPRESSION: 1. 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 Mild mass effect with flattening of the sulci bila terally. No evidence of herniation. 2. No evidence of acute territorial infarct. 3. Mild chronic small vessel ischemic change. 4. Intracranial atherosclerosis. EVIDENCE OF ACUTE STROKE: NO. COMMENT: Findings discussed with Ravi Husain on 04/17/2019 at 1744 hours. Quality ID # [id number]: Final reports with documentation of one or more dose reduction techniques (e.g., Au tomated exposure control, adjustment of the mA and/or kV according to patient size, use of iterative reconstruction technique) TECHNICAL DOCUMENTATION: JOB ID: [id number] [employer]- All Rights Reserved Reading location - IP/workstation name: [email or web address]
--- NOTE | 2019-04-17 18:14 | ER Document Report ---
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 He went and saw his doctor because he reports pain in the left head left ear and muffled hearing in the left ear. States he was diagnosed with an ear infection, placed on Levaquin and given prednisone and Cortisporin eardrops. He states he did not notice much improvement in his symptoms, called his doctor today who advised to come to the emergency department for evaluation. Patient states he feels well otherwise just has severe pain in tenderness to that side of the head and ear. Denies any head injuries, syncope, loss of consciousness. He does not take any blood thinning medication. Denies any neck pain, numbness, tingling or any weakness. No chest pain or shortness of breath. TRAVEL OUTSIDE OF THE [place] IN LAST 30 DAYS: No - Related Data Allergies/Adverse Reactions: JUDSON Inhibitors [Judson Inhibitors] Allergy (Verified 04/17/19 11:36) 1st degree AV block enalapril Allergy (Verified 04/17/19 11:36) coughing, wheezing, difficulty breathing metoprolol [From Lopressor] Allergy (Verified 04/17/19 11:36) airway closure morphine Allergy (Verified 04/17/19 11:36) cramping nitroglycerin Allergy (Verified 04/17/19 11:36) headache prazosin [From Minipress] Allergy (Verified 04/17/19 11:36) hyponaturemia propranolol [From Inderal LA] Allergy (Verified 04/17/19 11:36) airway closure valsartan Allergy (Verified 04/17/19 11:36) Hives beta blockers Allergy (Uncoded 04/17/19 11:36) airway closure diuretics Allergy (Uncoded 04/17/19 11:36) hives, swelling, hyponaturemia, hypokalemia Home Medications: see list on chart Past Medical History - Social History Smoking Status: Former Smoker Chew tobacco use (# tins/day): No Frequency of alcohol use: Occasional Drug Abuse: None Family History: Reviewed & Not Pertinent Patient has suicidal ideation: No Patient has homicidal ideation: No - Past Medical History Cardiac Medical History: Reports: Hx Hypertension Denies: Hx Coronary Artery Disease, Hx Heart Attack Pulmonary Medical History: Reports: Hx COPD, Hx Pneumonia Denies: Hx Asthma, Hx Bronchitis, Hx Tuberculosis Neurological Medical History: Reports: Hx Migraine. Denies: Hx Cerebrovascular Accident, Hx Seizures Endocrine Medical History: Reports: Hx Diabetes Mellitus Type 2, Hx Hypothyroidism. Denies: Hx Hyperthyroidism Renal/ Medical History: Denies: Hx Peritoneal Dialysis Malignancy Medical History: Reports Hx Leukemia, Reports Hx Lymphoma GI Medical History: Reports: Hx Gastroesophageal Reflux Disease Musculoskeletal Medical History: Denies Hx Arthritis Past Surgical History: Reports: Hx Appendectomy, Hx Cholecystectomy, Hx Vascular Surgery. Denies: Hx Pacemaker - Immunizations Hx Diphtheria, Pertussis, Tetanus Vaccination: Yes Hx Pneumococcal Vaccination: 12/10/05 Review of Systems - Review of Systems EENT: Ear pain Neurological/Psychological: Headaches -: Yes All other systems reviewed and negative Physical Exam - Vital signs Vitals: Temp Pulse Resp BP Pulse Ox 98.4 F 98 18 115/79 94 04/17/19 10:51 04/17/19 10:51 04/17/19 10:51 04/17/19 10:51 04/17/19 10:51 - General General appearance: Appears well, Alert In distress: None - HEENT Head: Normocephalic, Atraumatic, Tenderness - Mild tenderness to the left parietal and left ear/left postauricular area Eyes: Normal Conjunctiva: Normal Extraocular movements intact: Yes Pupils: PERRL Corrective lenses worn: Yes Ears: Normal External canal: Normal Tympanic membrane: Bulging - Both TMs are bulging bilaterally, right is worse than left. Both are pearly mckeon. Sinus: Normal Nasal: Normal Mouth/Lips: Normal Mucous membranes: Normal Pharynx: Normal Neck: Normal - Respiratory Respiratory status: No respiratory distress Chest status: Nontender Breath sounds: Normal Chest palpation: Normal - Cardiovascular Rhythm: Regular Heart sounds: Normal auscultation - Neurological Neuro grossly intact: Yes Cognition: Normal Orientation: AAOx4 [place] Coma Scale Eye Opening: Spontaneous [place] Coma Scale Verbal: Oriented [place] Coma Scale Motor: Obeys Commands [place] Coma Scale Total: 15 Speech: Normal Cranial nerves: Normal. No: Facial palsy, Forehead sparing, Gaze palsy, Sensory deficit, Tongue deviation Cerebellar coordination: Normal, Other - Normal [id number], khqb-ge-[id number] and rapid alternating hand movements. No: Gait ataxia Motor strength normal: LUE, RUE, LLE, RLE Additional motor exam normals: Equal erp implementation consultant. No: Pronator drift Sensory: Normal - Psychological Associated symptoms: Normal affect, Normal mood - Skin Skin Temperature: Warm Skin Moisture: Dry Skin Color: Normal Course - Re-evaluation Re-evalutation: 04/17/19 18:11 Patient is sitting up in bed, resting comfortably watching TV. He has no focal deficits or neurologic complaints. Only complains of left-sided headache that began about a week ago. 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 With a focal acute subdural hemorrhage at the left lateral parietal dura measuring 1.9 from anterior to posterior by 0.5 cm thickness. Minimal mass-effect with mild flattening of the sulci bilaterally. No midline shift or evidence of herniation. A reevaluation of the patient was done at this time upon finding some scan. He has no focal deficits. He is neurologically intact. Alert and oriented, watching TV and resting comfortably in the room. Only complaint is of left-sided head pain. [facility]. I have spoken with the transfer center at this time and impending back a call from neurosurgeon Francie Tripathi MD. pending suspected transfer. 04/17/19 18:16 04/17/19 18:58 I just spoke with Francie Tripathi MD, neurosurgeon with [facility], we discussed the patient's clinical and CAT scan findings. He advised this to be a minor finding. Suggested observation overnight at their facility. He has accepted the patient for transfer. The transfer center has advised they will call us back with a bed assignment. - Vital Signs Vital signs: Temp Pulse Resp BP Pulse Ox 98.1 F 65 18 134/94 H 99 04/17/19 18:44 04/17/19 18:44 04/17/19 18:44 04/17/19 18:44 04/17/19 18:44 - Laboratory Result Diagrams: 04/17/19 12:11 04/17/19 12:11 Laboratory results interpreted by me: 04/17/19 04/17/19 12:11 12:11 WBC 2.1 L RBC 3.97 L Hgb 13.2 L RDW 14.1 H Plt Count 49 L Absolute Neuts (auto) 1.2 L Glucose 114 H Total Protein 5.9 L Discharge - Discharge Clinical Impression: Subdural hemorrhage, Subdural hematoma Condition: Serious Disposition: [place] Referrals: TAMI CHAMPAGNE MD [Primary Care Provider] - Follow up as needed
--- NOTE | 2019-04-18 09:56 | RADIOLOGY REPORT (SQ) ---
EXAM DESCRIPTION: CT HEAD WITHOUT COMPLETED DATE/TIME: 04/18/2019 9:37 am REASON FOR STUDY: worsening [place] COMPARISON: 04/17/2019 TECHNIQUE: Axial images acquired through the brain without intravenous contrast. Images reviewed wi th bone, brain and subdural windows. Additional sagittal and coronal reconstructions were generated. Images stored on PACS. All CT scanners at this facility use dose modulation, iterative reconstruction, and/or weight based d osing when appropriate to reduce radiation dose to as low as reasonably achievable (ALARA). [facility]: Dose Right [facility]: CareDose [facility]: Dose Right [facility]: Teradose 4D [facility]: [employer] RADIATION DOSE: CT Rad equipment meets quality standard of care and radiation dose reduction techniq ues were employed. CTDIvol: 53.2 mGy. DLP: 1097 mGy-cm. mGy. LIMITATIONS: None. FINDINGS: VENTRICLES: Normal size and contour. CEREBRUM: There is mild sulcal effacement from the bilateral hollow hemispheric subdural hematomas. No masses. No hemorrhage. No midline shift. No evidence for acute infarction. Normal mckeon/white ma tter differentiation. CEREBELLUM: No masses. No hemorrhage. No alteration of density. No evidence for acute infarction. 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 The area of increased density in the left measures 5 mm in maximal thickness, stable. No definite new collection. No discrete mass. ORBITS AND GLOBE: No intra- or extraconal masses. Normal contour of globe without masses. CALVARIUM: No fracture. PARANASAL SINUSES: No fluid or mucosal thickening. SOFT TISSUES: No mass or hematoma. OTHER: Vascular calcifications. IMPRESSION: 1. Grossly stable appearance of the bilateral holo hemispheric mixed density acute on c hronic subdural hematomas. There is associated bilateral sulcal effacement, similar to prior. Basal cisterns are patent. No midline shift. 2. No evidence of acute large vascular territory infarct. EVIDENCE OF ACUTE STROKE: NO. COMMENT: Quality ID # [id number]: Final reports with documentation of one or more dose reduction techniques (e.g., Automated exposure control, adjustment of the mA and/or kV according to patient size, use of iterative reconstruction technique) TECHNICAL DOCUMENTATION: JOB ID: [id number] [employer]- All Rights Reserved Reading location - IP/workstation name: [email or web address]
[2019-04-18 14:49] VITALS: BP 150/99
--- NOTE | 2019-04-18 14:50 | EKG REPORT ---
SEVERITY:- ABNORMAL ECG - SINUS RHYTHM FIRST DEGREE AV BLOCK INCOMPLETE RIGHT BUNDLE BRANCH BLOCK : Confirmed by: Isamar Ma MD 18-Apr-2019 14:49:22
== END | disposition short-term general hospital (02) ==
LOC: ER 10:39
DX: I62.01 Nontraumatic acute subdural hemorrhage (principal); R51 Headache; H92.01 Otalgia, right ear; E11.9 Type 2 diabetes mellitus without complications; C91.10 Chronic lymphocytic leukemia of B-cell type not having achieved remission; I10 Essential (primary) hypertension; J44.9 Chronic obstructive pulmonary disease, unspecified; Z90.49 Acquired absence of other specified parts of digestive tract
CPT/HCPCS: 93005; 96376; 99285; 96361; 96374; 96375; 36415; 85025; 86140; 80053; 70450; 70480; 93010; A9270 ×3; J1200; J1885; J2765; J7030; J1170; J3010; J3490

== ENCOUNTER 2019-04-25 08:54 | Emergency (ER) | payer MEDICARE, OTHER ==
[2019-04-25 10:14] LABS: ABSOLUTE EOSINOPHILS # (AUTO) 0.1 10^3/uL (0.0-0.6); ABSOLUTE MONOCYTES (AUTO) 0.2 10^3/uL (0.1-1.4); ABSOLUTE NEUT (AUTO) 1.8 10^3/uL (1.7-8.2); BASOPHILS % (AUTO) 0.3 % (0-2); HEMATOCRIT 41.2 % (37.9-51.0); HEMOGLOBIN 14.7 g/dL (13.5-17.0); LYMPHOCYTES % (AUTO) 32.5 % (13-45); MEAN CORPUSCULAR HEMOGLOBIN 34.1 pg (27.0-33.4); MEAN CORPUSCULAR HGB CONC 35.6 g/dL (32.0-36.0); MEAN CORPUSCULAR VOLUME 96 fl (80-97); MONOCYTES % (AUTO) 5.3 % (3-13); RED BLOOD COUNT 4.31 10^6/uL (4.35-5.55); SEGMENTED NEUTROPHILS % (AUTO) 59.9 % (42-78); TOTAL CELLS COUNTED % (AUTO) 100 %; WHITE BLOOD COUNT 2.9 10^3/uL (4.0-10.5)
[2019-04-25 10:22] LABS: ALKALINE PHOSPHATASE 111 U/L (38-126); ANION GAP 7 (5-19); ASPARTATE AMINO TRANSFERASE 26 U/L (17-59); BILIRUBIN,TOTAL 0.6 mg/dL (0.2-1.3); BLOOD UREA NITROGEN 14 mg/dL (7-20); CALCIUM 8.8 mg/dL (8.4-10.2); CARBON DIOXIDE 28 mmol/L (22-30); CHLORIDE 102 mmol/L (98-107); GLUCOSE 121 mg/dL (75-110); TOTAL PROTEIN 6.2 g/dL (6.3-8.2)
[2019-04-25 10:24] LABS: ALCOHOL < 10 mg/dL (NONE DETECTED)
[2019-04-25 11:14] LABS: PLATELET COUNT 63 10^3/uL (150-450)
--- NOTE | 2019-04-25 12:31 | ER Document Report ---
Entered by BRANDON SILVER SCRIBE 04/25/19 1145 Acting as scribe for:BELEM HELMS MD ED General - General Mode of Arrival: Medic Information source: Patient TRAVEL OUTSIDE OF THE [place] IN LAST 30 DAYS: No - Related Data Home Medications: Fiorcet, Oxycodone, Phenergen <BELEM HELMS - Last Filed: 04/25/19 18:01> - General Information source: Relative - Cannot obtain history due to: Altered mental status - HPI Onset: This evening Onset/Duration: Gradual Quality of pain: Achy Severity: Mild Pain Level: 1 Associated symptoms: Fever - reports usual temp is 97 PO Exacerbated by: Movement, Walking Relieved by: Denies Similar symptoms previously: Yes Recently seen / treated by doctor: Yes <DENI ROBLES JR - Last Filed: 04/25/19 19:55> - General Chief Complaint: Altered Mental Status Stated Complaint: AMS Time Seen by Provider: 04/25/19 11:28 Primary Care Provider: TAMI CHAMPAGNE MD [Primary Care Provider] - Follow up as needed Notes: This 74-year-old male patient with CLL treated with intravenous immunoglobulin presents to the emergency department today with complaints of altered mental status. Patient was seen here on 04/17/2019 for acute on chronic bilateral subdural hematomas and was transferred to [facility], discharged on 04/18/2019 from there. states that the patient's mental status has waxed and wane since discharge. states that on 04/21 the patient had a "bad day", on 04/22 the patient had a "good day", on 04/23 "he was not as good", and yesterday on 04/24 "he was close to normal again." states that overnight last night the patient "was the worst he's been" stating that he was incontinent in bed. Prior to arrival today he was able to tell EMS he had to urinate and he urinated in a urinal but he is back to "the worst its been" again. Patient is lethargic but does arouse to name but quickly falls back asleep. (BELEM HELMS) - Related Data Allergies/Adverse Reactions: JUDSON Inhibitors [Judson Inhibitors] Allergy (Verified 04/17/19 11:36) 1st degree AV block enalapril Allergy (Verified 04/17/19 11:36) coughing, wheezing, difficulty breathing metoprolol [From Lopressor] Allergy (Verified 04/17/19 11:36) airway closure morphine Allergy (Verified 04/17/19 11:36) cramping nitroglycerin Allergy (Verified 04/17/19 11:36) headache prazosin [From Minipress] Allergy (Verified 04/17/19 11:36) hyponaturemia propranolol [From Inderal LA] Allergy (Verified 04/17/19 11:36) airway closure valsartan Allergy (Verified 04/17/19 11:36) Hives beta blockers Allergy (Uncoded 04/17/19 11:36) airway closure diuretics Allergy (Uncoded 04/17/19 11:36) hives, swelling, hyponaturemia, hypokalemia Past Medical History - General Information source: Patient - Social History Smoking Status: Never Smoker Cigarette use (# per day): No Frequency of alcohol use: None Drug Abuse: None Lives with: Family Family History: Reviewed & Not Pertinent Patient has suicidal ideation: No Patient has homicidal ideation: No - Past Medical History Cardiac Medical History: Reports: Hx Hypertension Pulmonary Medical History: Reports: Hx COPD, Hx Pneumonia Neurological Medical History: Reports: Hx Migraine Endocrine Medical History: Reports: Hx Diabetes Mellitus Type 2, Hx Hypothyroid ism Malignancy Medical History: Reports Hx Leukemia - CLL treated with intravenous immunoglobulin GI Medical History: Reports: Hx Gastroesophageal Reflux Disease Past Surgical History: Reports: Hx Appendectomy, Hx Cholecystectomy, Hx Vascular Surgery - Immunizations Hx Diphtheria, Pertussis, Tetanus Vaccination: Yes Hx Pneumococcal Vaccination: 12/10/05 <BELEM HELMS - Last Filed: 04/25/19 18:01> Review of Systems - Review of Systems -: Yes ROS unobtainable due to patient's medical condition <BELEM HELMS - Last Filed: 04/25/19 18:01> Physical Exam <BELEM HELMS - Last Filed: 04/25/19 18:01> - Vital signs Vitals: Resp BP Pulse Ox 11 L 151/99 H 96 04/25/19 09:03 04/25/19 09:03 04/25/19 09:03 - Notes Notes: Physical Exam: General: Lethargic, arouses to name but quickly falls back asleep. Move's all four extremities. HEENT: Normocephalic. Atraumatic. Oropharynx clear. When patient's eye lids are lifted, he has a blank stare and does not seem to be aware. Neck: Supple. Non-tender. Respiratory: No respiratory distress. Clear and equal breath sounds bilaterally. Cardiovascular: Regular rate and rhythm. Abdominal: Normal Inspection. Non-tender. No distension. Normal Bowel Sounds. Back: No gross abnormalities. Extremities: Moves all four extremities. Upper extremities: Normal inspection. Normal ROM. Lower extremities: Normal inspection. No edema. Normal ROM. Psychological: unable to assess Skin: Warm. Dry. Normal color. (BELEM HELMS) Course - Laboratory Result Diagrams: 04/25/19 09:24 04/25/19 09:24 - Diagnostic Test Radiology reviewed: Image reviewed, Reports reviewed - CT scan of the head shows the bilateral subdural collections look similar to previous. Suspect developing cerebral edema, however. [place]-white matter differentiation is diminished and there is suggestion of effacement of the basilar cisterns developing. No hydrocephalus or shift. - EKG Interpretation by [place] EKG shows normal: Sinus rhythm, [place], Intervals, ST-T Waves. abnormal: QRS Complexes - Old inferior Q's Rate: Normal - 71 Rhythm: NSR [place]/QRS: RBBB, LAHB/LAFB - Transfer of Care Care transferred to following provider: Dr. Robles <BELEM HELMS - Last Filed: 04/25/19 18:01> - Laboratory Result Diagrams: 04/25/19 09:24 04/25/19 09:24 <DENI ROBLES JR - Last Filed: 04/25/19 19:55> - Re-evaluation Re-evalutation: 04/25/19 17:[address] scan shows cerebral edema which would explain the mental status changes this past week. The rest of his work-up does not show any other abnormality to explain these findings. I did call the transfer center at [facility] at 16:22 to request a transfer back to the neurosurgical service. (BELEM HELMS) - Vital Signs Vital signs: Temp Pulse Resp BP Pulse Ox 97.4 F 14 136/87 H 97 04/25/19 19:11 04/25/19 15:39 04/25/19 15:39 04/25/19 15:39 - Laboratory Laboratory results interpreted by me: 04/25/19 04/25/19 04/25/19 09:24 09:24 10:02 WBC 2.9 L RBC 4.31 L MCH 34.1 H Plt Count 63 L Glucose 121 H POC Glucose 126 H Magnesium 2.4 H Total Protein 6.2 L 04/25/19 04/25/19 04/25/19 15:48 15:59 18:20 WBC RBC MCH Plt Count Glucose POC Glucose 119 H 128 H 157 H Magnesium Total Protein - Transfer of Care Notes: 04/25/19 18:01 Patient is pending transfer to [facility]. The neurosurgical service that took care of the patient last week has not returned the call as yet. (BELEM HELMS) Critical Care Note - Critical Care Note Total time excluding time spent on procedures (mins): 90 <DENI ROBLES JR - Last Filed: 04/25/19 19:55> - Critical Care Note Comments: This case was discussed with [facility] at 1800 and Harish from [facility] called back at 1910 with the knowledge that the neurosurgeon in surgery at this time but he will get in touch with him for transfer for this patient. His was advising me that he was transferred there last week and he went to the ER and was discharged after 3-hour wait. She hopes this does not happen again. Also patient needs his 50 mg of Cozaar p.o. and his amlodipine 5 mg . Harish at [facility] advises the neurosurgeon has excepted the patient at 1915 at the neuro surgery ICU. However, "a room will not be ready until tomorrow morning." This was written dictated by me Andry Robles... Carmita discussed this case with me prior to leaving at 1730 (DENI ROBLES JR) Discharge <BELEM HELMS - Last Filed: 04/25/19 18:01> <DENI ROBLES JR - Last Filed: 04/25/19 19:55> - Discharge Clinical Impression: Bilateral chronic intracranial subdural hematoma, Cerebral edema Altered mental status Qualifiers: Altered mental status type: unspecified Qualified Code(s): R41.82 - Altered mental status, unspecified Condition: Fair Disposition: [place] Additional Instructions: transfer this patient by ground unit to [place] per neurosurgeons acceptance to neuro ICU Referrals: TAMI CHAMPAGNE MD [Primary Care Provider] - Follow up as needed Scribe Attestation: 04/25/19 12:31 I personally performed the services described in the documentation, reviewed and edited the documentation which was dictated to the scribe in my presence, and it accurately records my words and actions. (BELEM HELMS) I personally performed the services described in the documentation, reviewed and edited the documentation which was dictated to the scribe in my presence, and it accurately records my words and actions.
[2019-04-25 12:34] LABS: APPEARANCE,URINE CLEAR; BILIRUBIN,URINE NEGATIVE (NEGATIVE); COLOR,URINE YELLOW; GLUCOSE, URINE NEGATIVE (NEGATIVE); KETONES,URINE NEGATIVE (NEGATIVE); LEUKOCYTE ESTERASE,URINE NEGATIVE (NEGATIVE); NITRITE,URINE NEGATIVE (NEGATIVE); PROTEIN,URINE NEGATIVE (NEGATIVE); URINE SPECIFIC GRAVITY 1.009; UROBILINOGEN,URINE NEGATIVE mg/dL (<2.0)
[2019-04-25 12:57] LABS: URINE AMPHETAMINES SCREEN NEGATIVE; URINE BENZODIAZEPINES SCREEN NEGATIVE; URINE COCAINE SCREEN NEGATIVE; URINE MARIJUANA (THC) SCREEN NEGATIVE; URINE METHADONE SCREEN NEGATIVE; URINE PHENCYCLIDINE SCREEN NEGATIVE
[2019-04-25 13:02] LABS: URINE BARBITURATES SCREEN UNCONFIRMED POSITIVE
--- NOTE | 2019-04-25 13:28 | RADIOLOGY REPORT (SQ) ---
EXAM DESCRIPTION: CT HEAD WITHOUT COMPLETED DATE/TIME: 04/25/2019 1:05 pm REASON FOR STUDY: Bilateral subdurals, acute mental decline COMPARISON: 04/18/2019 TECHNIQUE: Axial images acquired through the brain without intravenous contrast. Images reviewed wi th bone, brain and subdural windows. Additional sagittal and coronal reconstructions were generated. Images stored on PACS. All CT scanners at this facility use dose modulation, iterative reconstruction, and/or weight based d osing when appropriate to reduce radiation dose to as low as reasonably achievable (ALARA). [facility]: Dose Right [facility]: CareDose [facility]: Dose Right [facility]: Teradose 4D [facility]: [employer] RADIATION DOSE: CT Rad equipment meets quality standard of care and radiation dose reduction techniq ues were employed. CTDIvol: 53.2 mGy. DLP: 1097 mGy-cm. mGy. LIMITATIONS: None. FINDINGS: VENTRICLES: Normal size and contour. CEREBRUM: No masses. No hemorrhage. No midline shift. No evidence for acute infarction. Less mckeon- white matter differentiation compared to prior. Possibility of increasing cerebral edema is raised. No focal parenchymal hemorrhage. Basilar cisterns look slightly effaced, also possibly related incr easing cerebral edema. CEREBELLUM: No masses. No hemorrhage. No alteration of density. No evidence for acute infarction. EXTRAAXIAL SPACES: Bilateral subdural collections are once again noted and look fairly stable. Based on coronal measurements, left measures up to just at 1 cm maximally and right measures close to 9 mm maximally in thickness. These are fairly stable. Mild mixed density within, as before. Doubt collins ge. ORBITS AND GLOBE: No intra- or extraconal masses. Normal contour of globe without masses. CALVARIUM: No fracture. PARANASAL SINUSES: No fluid or mucosal thickening. SOFT TISSUES: No mass or hematoma. OTHER: No other significant finding. IMPRESSION: 1. Bilateral subdural collections look similar. 2. Suspect developing cerebral edema, however. The mckeon-white matter differentiation is diminished a nd there is suggestion of effacement of the basilar cisterns developing. No hydrocephalus or shift o therwise, however. EVIDENCE OF ACUTE STROKE: NO. COMMENT: Quality ID # [id number]: Final reports with documentation of one or more dose reduction techniques (e.g., Automated exposure control, adjustment of the mA and/or kV according to patient size, use of iterative reconstruction technique) TECHNICAL DOCUMENTATION: JOB ID: [id number] [employer]- All Rights Reserved Reading location - IP/workstation name: [email or web address]
[2019-04-25] MEDS ORDERED: DEXAMETHASONE SOD PHOS INJ 10 MG/1 ML VIAL IV ONE (15:33)
[2019-04-25] MEDS ORDERED: LOSARTAN POTASSIUM 50 MG TABLET PO ONE (19:11)
[2019-04-25] MEDS ORDERED: AMLODIPINE BESYLATE 5 MG TABLET PO ONE (19:13)
--- NOTE | 2019-04-25 20:10 | EKG REPORT ---
SEVERITY:- ABNORMAL ECG - SINUS OR ECTOPIC ATRIAL RHYTHM INCOMPLETE RIGHT BUNDLE BRANCH BLOCK PROBABLE INFERIOR INFARCT, AGE INDETERMINATE : Confirmed by: Donnie Cowan MD 25-Apr-2019 20:09:39
[2019-04-26] MEDS ORDERED: (PENDING PHARMACY ID) (Butalb/Acetaminophen/Caffeine [Butalb-Acetamin-Caff 50-300-40] 1 CA PO PRN (10:10)
[2019-04-26] MEDS ORDERED: LOSARTAN POTASSIUM 50 MG TABLET PO ONE (11:00)
[2019-04-26] MEDS ORDERED: MINOXIDIL 10 MG TABLET PO ONE (11:15)
[2019-04-26] MEDS ORDERED: LEVOTHYROXINE SODIUM 0.05 MG TABLET PO ONE (11:15)
[2019-04-26] MEDS ORDERED: LEVOTHYROXINE SODIUM 0.1 MG TABLET PO ONE (11:15)
[2019-04-26] MEDS ORDERED: DEXAMETHASONE SOD PHOS INJ 10 MG/1 ML VIAL IV ONE ×2 (13:42→19:31)
[2019-04-26] MEDS ORDERED: MINOXIDIL 10 MG TABLET PO SCH (18:00)
[2019-04-26 18:11] LABS: ABSOLUTE LYMPHOCYTES (AUTO) 0.4 10^3/uL (0.5-4.7); ABSOLUTE MONOCYTES (AUTO) 0.1 10^3/uL (0.1-1.4); ABSOLUTE NEUT (AUTO) 3.2 10^3/uL (1.7-8.2); BASOPHILS % (AUTO) 0.1 % (0-2); EOSINOPHILS % (AUTO) 0.1 % (0-6); HEMATOCRIT 41.9 % (37.9-51.0); HEMOGLOBIN 14.7 g/dL (13.5-17.0); LYMPHOCYTES % (AUTO) 11.5 % (13-45); MEAN CORPUSCULAR HEMOGLOBIN 33.9 pg (27.0-33.4); MEAN CORPUSCULAR HGB CONC 35.1 g/dL (32.0-36.0); MEAN CORPUSCULAR VOLUME 97 fl (80-97); MONOCYTES % (AUTO) 2.1 % (3-13); RED BLOOD COUNT 4.34 10^6/uL (4.35-5.55); RED CELL DISTRIBUTION WIDTH 14.2 % (11.5-14.0); SEGMENTED NEUTROPHILS % (AUTO) 86.2 % (42-78); TOTAL CELLS COUNTED % (AUTO) 100 %; WHITE BLOOD COUNT 3.7 10^3/uL (4.0-10.5)
[2019-04-26 18:25] LABS: ALBUMIN 3.9 g/dL (3.5-5.0); ALKALINE PHOSPHATASE 105 U/L (38-126); ANION GAP 10 (5-19); ASPARTATE AMINO TRANSFERASE 28 U/L (17-59); BILIRUBIN,DIRECT 0.2 mg/dL (0.0-0.4); BILIRUBIN,TOTAL 0.7 mg/dL (0.2-1.3); BLOOD UREA NITROGEN 19 mg/dL (7-20); CALCIUM 8.9 mg/dL (8.4-10.2); CARBON DIOXIDE 24 mmol/L (22-30); CHLORIDE 102 mmol/L (98-107); GLUCOSE 173 mg/dL (75-110); POTASSIUM 4.5 mmol/L (3.6-5.0); TOTAL PROTEIN 6.5 g/dL (6.3-8.2)
[2019-04-26 18:32] LABS: APPEARANCE,URINE CLEAR; BILIRUBIN,URINE NEGATIVE (NEGATIVE); COLOR,URINE YELLOW; GLUCOSE, URINE NEGATIVE (NEGATIVE); KETONES,URINE NEGATIVE (NEGATIVE); LEUKOCYTE ESTERASE,URINE NEGATIVE (NEGATIVE); NITRITE,URINE NEGATIVE (NEGATIVE); PROTEIN,URINE NEGATIVE (NEGATIVE); UROBILINOGEN,URINE NEGATIVE mg/dL (<2.0)
[2019-04-26 18:44] LABS: PLATELET COUNT 73 10^3/uL (150-450)
[2019-04-26] MEDS ORDERED: LOSARTAN POTASSIUM 50 MG TABLET PO SCH (22:00)
[2019-04-26] MEDS ORDERED: AMLODIPINE BESYLATE 5 MG TABLET PO SCH (22:00)
--- NOTE | 2019-04-27 03:02 | ER Document Report ---
Doctor's Note Notes: 04/27/19 03:00 This MD was informed by the patient's nurse that transport is here to transfer patient to [facility]. This MD went to the bedside to examine the patient prior to transfer. Patient is currently sleeping and appears to be in no acute distress. Current vital signs heart rate 144/86, heart rate 78, SPO2 95 on room air respiration rate is 15.
[2019-04-27 03:17] VITALS: BP 124/74
[2019-04-27] MEDS ORDERED: LEVOTHYROXINE SODIUM 0.05 MG TABLET PO SCH (06:00)
[2019-04-27] MEDS ORDERED: LEVOTHYROXINE SODIUM 0.1 MG TABLET PO SCH (06:00)
[2019-04-27] MEDS ORDERED: DEXAMETHASONE SOD PHOS INJ 10 MG/1 ML VIAL IV ONE (10:00)
== END 2019-04-27 03:18 | disposition short-term general hospital (02) ==
LOC: ER 08:54
DX: I62.03 Nontraumatic chronic subdural hemorrhage (principal); G93.6 Cerebral edema; R41.82 Altered mental status, unspecified; C91.10 Chronic lymphocytic leukemia of B-cell type not having achieved remission; R53.83 Other fatigue; I10 Essential (primary) hypertension; J44.9 Chronic obstructive pulmonary disease, unspecified; E11.9 Type 2 diabetes mellitus without complications; E03.9 Hypothyroidism, unspecified; Z88.6 Allergy status to analgesic agent; Z90.49 Acquired absence of other specified parts of digestive tract
CPT/HCPCS: 93005; 36415; 82962; 80307 ×2; 83735; 85025; 80053; 81001; 84484; 70450; 93010; A9270 ×2; J1100; J3490

== ENCOUNTER → 2019-08-13 | Outpatient (CLI) | payer MEDICARE, OTHER ==
[2019-08-13 09:02] LABS: ABSOLUTE EOSINOPHILS # (AUTO) 0.1 10^3/uL (0.0-0.6); ABSOLUTE LYMPHOCYTES (AUTO) 0.9 10^3/uL (0.5-4.7); ABSOLUTE MONOCYTES (AUTO) 0.1 10^3/uL (0.1-1.4); ABSOLUTE NEUT (AUTO) 1.2 10^3/uL (1.7-8.2); BASOPHILS % (AUTO) 0.4 % (0-2); EOSINOPHILS % (AUTO) 3.4 % (0-6); HEMATOCRIT 41.3 % (37.9-51.0); HEMOGLOBIN 14.5 g/dL (13.5-17.0); LYMPHOCYTES % (AUTO) 40.3 % (13-45); MEAN CORPUSCULAR HEMOGLOBIN 33.9 pg (27.0-33.4); MEAN CORPUSCULAR HGB CONC 35.1 g/dL (32.0-36.0); MEAN CORPUSCULAR VOLUME 97 fl (80-97); MONOCYTES % (AUTO) 5.6 % (3-13); RED BLOOD COUNT 4.27 10^6/uL (4.35-5.55); RED CELL DISTRIBUTION WIDTH 13.6 % (11.5-14.0); SEGMENTED NEUTROPHILS % (AUTO) 50.3 % (42-78); TOTAL CELLS COUNTED % (AUTO) 100 %; WHITE BLOOD COUNT 2.3 10^3/uL (4.0-10.5)
[2019-08-13 09:24] LABS: PLATELET COUNT 54 10^3/uL (150-450)
[2019-08-13 09:29] LABS: ALBUMIN 4.5 g/dL (3.5-5.0); ALKALINE PHOSPHATASE 104 U/L (38-126); ANION GAP 9 (5-19); ASPARTATE AMINO TRANSFERASE 22 U/L (17-59); BILIRUBIN,TOTAL 0.9 mg/dL (0.2-1.3); BLOOD UREA NITROGEN 29 mg/dL (7-20); CALCIUM 9.1 mg/dL (8.4-10.2); CARBON DIOXIDE 26 mmol/L (22-30); CHLORIDE 105 mmol/L (98-107); CHOLESTEROL 148.23 mg/dL (0-200); GLUCOSE 129 mg/dL (75-110); POTASSIUM 4.4 mmol/L (3.6-5.0); TOTAL PROTEIN 6.4 g/dL (6.3-8.2); TRIGLYCERIDES 78 mg/dL (<150)
[2019-08-13 09:40] LABS: DIRECT LDL 102 mg/dL (<100)
== END ==
LOC: OD 08:02
PROVIDERS: ATTEND Internal Medicine
DX: E11.9 Type 2 diabetes mellitus without complications (principal); R35.1 Nocturia; I10 Essential (primary) hypertension; E55.9 Vitamin D deficiency, unspecified; E03.9 Hypothyroidism, unspecified
CPT/HCPCS: 36415; 80053; 80061; 82306; 84153; 84443; 85025